=== PATIENT | female | born 1960 | race Caucasian/White ===

== ENCOUNTER 2016-08-22 12:49 | Emergency (ER) | payer OTHER ==
--- NOTE | 2016-08-22 12:58 | PDOC ---
History of Present Illness - General History Source: Patient Exam Limitations: No Limitations - History of Present Illness Initial Comments: 08/22/16 13:52 The patient is a 56 year old female with a significant past medical history of arthritis in the left leg and back, COPD, HTN, hypercholesterolemia, who presents to the ER with generalized chest pain and left arm pain earlier today. Patient states she went outside of her apartment today for fresh air and suddenly started to feel chest pain, left sided arm pain, and shortness of breath. Patient reports not feeling well for one week. She states she missed her appointment for her chronic arthritis symptoms and was not able to refill the percocet medication. Patient was told by her doctor that her symptoms may be from percocet withdrawal and was told to go to the ER if symptoms persist. On interview, patient states the chest pain and left arm pain resolved. She reports she has a loss of appetite, has frequent bowel movements, and is lightheaded when she stands up. She says her next appointment for medication is September 10. She denies fever, chills, cough She denies abdominal pain, diarrhea, nausea, vomiting She denies headache, dizziness She denies heart palpitations, diaphoresis <Geneva Farnsworth - Last Filed: 08/22/16 14:33> <Tash Roberts - Last Filed: 08/22/16 21:27> - General Chief Complaint: Chest Pain Stated Complaint: CHEST PAIN Past History <Geneva Farnsworth - Last Filed: 08/22/16 14:33> - Past Medical History COPD: Yes HTN: Yes Hypercholesterolemia: Yes - Surgical History Abdominal Surgery: Yes (tubal ligation) Appendectomy: Yes - Psycho/Social/Smoking Cessation Hx Anxiety: No Suicidal Ideation: No Smoking History: Current every day smoker Number of Cigarettes Smoked Daily: 10 Hx Alcohol Use: No Drug/Substance Use Hx: No Substance Use Type: None <Tash Roberts - Last Filed: 08/22/16 21:27> - Past Medical History Allergies/Adverse Reactions: Allergies Allergy/AdvReac Type Severity Reaction Status Date / Time Penicillins Allergy Severe Hives Verified 08/22/16 13:43 Home Medications: Ambulatory Orders Albuterol 0.083% Nebulizer Sandra [Ventolin 0.083% Nebulizer Soln -] 1 neb NEB Q4H #1 box 07/25/15 Budesonide/Formeterol Fumarate [SYMBICORT 160/4.5mcg -] 1 inh PO BID 08/22/16 Fluticasone/Salmeterol [Advair Hfa 115-21 Mcg Inhaler] 1 inh PO BID 08/22/16 Lisinopril [Prinivil] 10 mg PO DAILY 08/22/16 Oxycodone HCl/Acetaminophen [Percocet 5-325 mg Tablet] 1 tab PO Q6H PRN #12 tablet MDD 4 tabs 08/22/16 Review of Systems - Review of Systems Able to Perform ROS?: Yes Comments:: 08/22/16 13:58 GENERAL/CONSTITUTIONAL: Lightheadedness. Loss of appetite. No fever or chills. No weakness. HEAD, EYES, EARS, NOSE AND THROAT: No change in vision. No ear pain or discharge. No sore throat. CARDIOVASCULAR: Chest pain, shortness of breath. RESPIRATORY: No cough, wheezing, or hemoptysis. GASTROINTESTINAL: Frequent bowel movement. No nausea, vomiting, diarrhea or constipation. GENITOURINARY: No dysuria, frequency, or change in urination. MUSCULOSKELETAL: Left arm pain. No joint or muscle swelling or pain. No neck or back pain. SKIN: No rash NEUROLOGIC: No headache, vertigo, loss of consciousness, or change in strength/ sensation. ENDOCRINE: No increased thirst. No abnormal weight change. HEMATOLOGIC/LYMPHATIC: No anemia, easy bleeding, or history of blood clots. ALLERGIC/IMMUNOLOGIC: No hives or skin allergy. <Uts,Geneva - Last Filed: 08/22/16 14:33> *Physical Exam - Vital Signs Last Vital Signs Temp Pulse Resp BP Pulse Ox 98.2 F 80 17 145/87 96 08/22/16 13:36 08/22/16 13:36 08/22/16 13:36 08/22/16 13:36 08/22/16 13:36 - Physical Exam Comments: 08/22/16 14:00 GENERAL: Awake, alert, and fully oriented, in no acute distress HEAD: No signs of trauma EYES: PERRLA, EOMI, sclera anicteric, conjunctiva clear ENT: Auricles normal inspection, hearing grossly normal, nares patent, oropharynx clear without exudates. Moist mucosa NECK: Normal ROM, supple, no lymphadenopathy, JVD, or masses LUNGS: Breath sounds equal, clear to auscultation bilaterally. No wheezes, and no crackles HEART: Regular rate and rhythm, normal S1 and S2, no murmurs, rubs or gallops ABDOMEN: Soft, nontender, normoactive bowel sounds. No guarding, no rebound. No masses EXTREMITIES: Normal range of motion, no edema. No clubbing or cyanosis. No cords, erythema, or tenderness NEUROLOGICAL: Cranial nerves II through XII grossly intact. Normal speech, normal gait SKIN: Warm, Dry, normal turgor, no rashes or lesions noted. <JavadGeneva - Last Filed: 08/22/16 14:33> Heart Score/ECG Review - History History: Slightly suspicious - Electrocardiogram EKG: Normal - Age Age: 45-65 - Risk Factors Risk Factors Heart Score: Yes Hx Hypertension, Yes Smoking History Based on the list above the patient has:: 1-2 risk factors - Troponin Troponin: </= normal limit - Score Heart Score - Total: 2 - ECG Impressions Comment:: EKG read 13:06- NSR 85 bpm, RBBB, no acute ST/T changes. <Tash Roberts - Last Filed: 08/22/16 21:27> ED Treatment Course - LABORATORY CBC & Chemistry Diagram: 08/22/16 13:20 08/22/16 13:43 - ADDITIONAL ORDERS Additional order review: 08/22/16 13:20 RBC 4.32 MCV 92.7 MCHC 33.8 RDW 13.7 D MPV 7.4 L Neutrophils % 75.6 Lymphocytes % 14.3 D Monocytes % 6.6 Eosinophils % 2.6 D Basophils % 0.9 - RADIOLOGY Radiograph Interpretation: 08/22/16 14:33 Chest XR impression reported by Dr. Miguel Ángel Lees: No acute pathology. No significant change. - Medications Given in the ED: ED Medications Discontinued Medications Generic Name Dose Route Start Last Admin Trade Name Freq PRN Reason Stop Dose Admin Oxycodone/Acetaminophen 1 combo 08/22/16 13:09 08/22/16 13:30 Percocet 5/325 - PO 08/22/16 13:10 1 combo ONCE ONE Administration <JavadGeneva - Last Filed: 08/22/16 14:33> - LABORATORY CBC & Chemistry Diagram: 08/22/16 13:20 08/22/16 13:43 <Tash Roberts - Last Filed: 08/22/16 21:27> Medical Decision Making - Medical Decision Making 08/22/16 13:07 Reference #: [id number]- Last rx for percocet on 06/24. No red flags. 08/22/16 14:45 Discussion at bedside. Patient had a negative stress test and complete cardiac workup in the last month. Her symptoms improved with small dose of percocet, and I suspect that part of this is related to withdrawal. We discussed that I will given smaller dose for 3 day supply (5mg of oxycodone instead of 10 mg), to attempt to give her time for outpatient pain management f/u. We also discussed that it may be valuable for her to be tapered off over time with pain mgmt physician's supervision, as the withdrawal symptoms have been distressing for patient, and she may go through it again if she misses an appointment. Stable for DC home. <Tash Roberts - Last Filed: 08/22/16 21:27> *DC/Admit/Observation/Transfer - Attestations Scribe Attestion: 08/22/16 14:01 Documentation prepared by Geneva Farnsworth, acting as medical transcriptionist for Tash Roberts MD. <Geneva Farnsworth - Last Filed: 08/22/16 14:33> - Discharge Dispostion Admit: No <Tash Roberts - Last Filed: 08/22/16 21:27> Diagnosis at time of Disposition: Chest pain Qualifiers: Chest pain type: unspecified Qualified Code(s): R07.9 - Chest pain, unspecified - Discharge Dispostion Disposition: HOME Condition at time of disposition: Improved - Prescriptions Prescriptions: Oxycodone HCl/Acetaminophen [Percocet 5-325 mg Tablet] 1 tab PO Q6H PRN #12 tablet MDD 4 tabs PRN Reason: Severe Pain - Referrals Referrals: Coco Tello MD [Primary Care Provider] - - Patient Instructions Printed Discharge Instructions: DI for Chest Pain
[2016-08-22] MEDS ORDERED: OXYCODONE/APAP 5/325MG COMBO TABLET PO ONE (13:09)
[2016-08-22] MEDS ORDERED: OXYCODONE/APAP 5/325MG COMBO TABLET ONE (13:28)
--- NOTE | 2016-08-22 13:28 | EKG ---
Test Reason : Blood Pressure : / mmHG Vent. Rate : 085 BPM Atrial Rate : 085 BPM P-R Int : 116 ms QRS Dur : 132 ms QT Int : 400 ms P-R-T Axes : -05 082 028 degrees QTc Int : 476 ms NORMAL SINUS RHYTHM RIGHT BUNDLE BRANCH BLOCK ABNORMAL ECG WHEN COMPARED WITH ECG OF 25-JUL-2015 15:12, NO SIGNIFICANT CHANGE WAS FOUND Confirmed by KYLAH MCCULLOUGH MD ([id number]) on 08/22/2016 1:28:11 PM Referred By: Confirmed By:KYLAH MCCULLOUGH MD
[2016-08-22 13:32] LABS: BASOPHIL 0.9 % (0-2.0); EOSINOPHIL 2.6 % (0-4.5); MCH 31.3 pg (25.7-33.7); MCHC 33.8 g/dl (32.0-36.0); MEAN CELL VOLUME 92.7 fl (80-96); MEAN PLT VOLUME 7.4 fl (7.5-11.1); NEUTROPHILS 75.6 % (42.8-82.8); PLATELET COUNT 322 K/MM3 (134-434); RDW 13.7 % (11.6-15.6)
[2016-08-22 13:42] VITALS: TEMP 98.2; BMI 38.5
[2016-08-22 14:03] LABS: ALBUMIN 3.3 g/dl (3.4-5.0); ANION GAP 11 (8-16); CALCIUM 8.6 mg/dL (8.5-10.1); CO2 25 mmol/L (21-32); CREATININE 0.7 mg/dL (0.55-1.02); GLUCOSE,RANDOM 97 mg/dL (74-106); SGOT/AST 12 U/L (15-37); SGPT/ALT 26 U/L (12-78)
[2016-08-22 14:08] LABS: ALK PHOS 104 U/L (45-117); BILIRUBIN,TOTAL 0.3 mg/dL (0.2-1.0); TOT PROT 6.4 g/dl (6.4-8.2); TROPONIN I < 0.02 ng/ml (0.00-0.05)
[2016-08-22 15:35] VITALS: BP 139/79; PULSE 76
== END 2016-08-22 15:35 | disposition home or self-care (01) ==
LOC: JER 12:49
DX: R07.9 Chest pain, unspecified (principal); M12.9 Arthropathy, unspecified
CPT/HCPCS: 36415; 71010-TC; 80053; 82550; 84484; 85025; 93005; 93010; 99284-25

== ENCOUNTER 2016-08-28 20:35 | Emergency (ER) | payer OTHER ==
[2016-08-28] MEDS ORDERED: ALBUTEROL SO4 2.5/IPRATROPIUM 0.5 INH SOL 3 ML VIAL.NEB. NEB ONE ×2 (20:55→21:08)
[2016-08-28] MEDS ORDERED: OXYCODONE/APAP 5/325MG COMBO TABLET PO ONE (20:56)
[2016-08-28 21:02] VITALS: BP 148/112; PULSE 106; TEMP 98; BMI 38.5
[2016-08-28] MEDS ORDERED: OXYCODONE/APAP 5/325MG COMBO TABLET ONE (21:08)
--- NOTE | 2016-08-28 23:10 | PDOC ---
History of Present Illness - General History Source: Patient Exam Limitations: No Limitations - History of Present Illness Initial Comments: 08/28/16 23:19 The patient is 56 year old female with a PMHx of COPD and chronic back pain who presents to the ED with back pain. She reports that she missed a doctors appt who prescribes her pain medication for her chronic back pain and the next appt is not for a while. She reports the back pain is constant and severe. Nothing alleviates the pain. She also reports congestion and cough. She reports taking nebulizer treatments, which have been helping slightly. She denies chest pain, SOB, fever, chills, nausea, vomiting, diarrhea. She denies urinary complaints. <Anahi English - Last Filed: 08/28/16 23:20> <Belia Mcelroy - Last Filed: 08/29/16 22:11> - General Chief Complaint: Asthma Stated Complaint: ASTHMA/BODY PAIN Time Seen by Provider: 08/28/16 20:54 Past History <Anahi English - Last Filed: 08/28/16 23:20> - Past Medical History COPD: Yes HTN: Yes Hypercholesterolemia: Yes Other medical history: arthritis - Surgical History Abdominal Surgery: Yes (tubal ligation) Appendectomy: Yes - Immunization History Immunization Up to Date: Yes - Psycho/Social/Smoking Cessation Hx Anxiety: No Suicidal Ideation: No Smoking History: Former smoker Have you smoked in the past 12 months: Yes Number of Cigarettes Smoked Daily: 10 If you are a former smoker, when did you quit?: 04/30/16 Information on smoking cessation initiated: No Hx Alcohol Use: No Drug/Substance Use Hx: No Substance Use Type: None <Belia Mcelroy - Last Filed: 08/29/16 22:11> - Past Medical History Allergies/Adverse Reactions: Allergies Allergy/AdvReac Type Severity Reaction Status Date / Time Penicillins Allergy Severe Hives Verified 08/22/16 13:43 Home Medications: Ambulatory Orders Albuterol 0.083% Nebulizer Sandra [Ventolin 0.083% Nebulizer Soln -] 1 neb NEB Q4H #1 box 07/25/15 Budesonide/Formeterol Fumarate [SYMBICORT 160/4.5mcg -] 1 inh PO BID 08/22/16 Fluticasone/Salmeterol [Advair Hfa 115-21 Mcg Inhaler] 1 inh PO BID 08/22/16 Lisinopril [Prinivil] 10 mg PO DAILY 08/22/16 Oxycodone HCl/Acetaminophen [Percocet 5-325 mg Tablet] 1 tab PO Q6H PRN #12 tablet MDD 4 tabs 08/22/16 Oxycodone HCl/Acetaminophen [Percocet 5/325 -] 1 tab PO Q6H #16 tablet MDD 4 Review of Systems - Review of Systems Able to Perform ROS?: Yes Comments:: 08/28/16 23:20 GENERAL/CONSTITUTIONAL: No fever or chills. No weakness. HEAD, EYES, EARS, NOSE AND THROAT: + congestion. No change in vision. No ear pain or discharge. No sore throat. CARDIOVASCULAR: No chest pain or shortness of breath. RESPIRATORY: + cough. No wheezing, or hemoptysis. GASTROINTESTINAL: No nausea, vomiting, diarrhea or constipation. GENITOURINARY: No dysuria, frequency, or change in urination. MUSCULOSKELETAL: + back pain. No joint or muscle swelling or pain. No neck pain. SKIN: No rash NEUROLOGIC: No headache, vertigo, loss of consciousness, or change in strength/ sensation. ENDOCRINE: No increased thirst. No abnormal weight change. HEMATOLOGIC/LYMPHATIC: No anemia, easy bleeding, or history of blood clots. ALLERGIC/IMMUNOLOGIC: No hives or skin allergy. <Anahi English - Last Filed: 08/28/16 23:20> *Physical Exam - Vital Signs Last Vital Signs Temp Pulse Resp BP Pulse Ox 98.0 F 106 H 18 148/112 98 08/28/16 20:57 08/28/16 20:57 08/28/16 20:57 08/28/16 20:57 08/28/16 20:57 - Physical Exam Comments: 08/28/16 23:20 GENERAL: Awake, alert, and fully oriented, in no acute distress HEAD: No signs of trauma EYES: PERRLA, EOMI, sclera anicteric, conjunctiva clear ENT: Auricles normal inspection, hearing grossly normal, nares patent, oropharynx clear without exudates. Moist mucosa NECK: Normal ROM, supple, no lymphadenopathy, JVD, or masses LUNGS: Breath sounds equal, clear to auscultation bilaterally. No wheezes, and no crackles HEART: Regular rate and rhythm, normal S1 and S2, no murmurs, rubs or gallops ABDOMEN: Soft, nontender, normoactive bowel sounds. No guarding, no rebound. No masses EXTREMITIES: Normal range of motion, no edema. No clubbing or cyanosis. No cords, erythema, or tenderness NEUROLOGICAL: Cranial nerves II through XII grossly intact. Normal speech, normal gait SKIN: Warm, Dry, normal turgor, no rashes or lesions noted. <English,Anahi A - Last Filed: 08/28/16 23:20> - Vital Signs Last Vital Signs Temp Pulse Resp BP Pulse Ox 98.0 F 106 H 18 148/112 98 08/28/16 20:57 08/28/16 20:57 08/28/16 20:57 08/28/16 20:57 08/28/16 20:57 <Belia Mcelroy - Last Filed: 08/29/16 22:11> ED Treatment Course - RADIOLOGY Radiograph Interpretation: 08/28/16 23:21 Chest X-Ray Reported by Dr. Larisa Franco Impression: No significant interval change or acute lung disease is present. - Medications Given in the ED: ED Medications Discontinued Medications Generic Name Dose Route Start Last Admin Trade Name Freq PRN Reason Stop Dose Admin Albuterol/Ipratropium 1 amp 08/28/16 20:55 08/28/16 21:19 Duoneb - NEB 08/28/16 20:56 1 amp ONCE ONE Administration Oxycodone/Acetaminophen 1 combo 08/28/16 20:56 08/28/16 21:19 Percocet 5/325 - PO 08/28/16 20:57 1 combo ONCE ONE Administration <English,Anahi A - Last Filed: 08/28/16 23:20> - RADIOLOGY Radiology Studies Ordered: Category Date Time Status CHEST PA & LAT [RAD] Stat Radiology 08/28/16 21:13 Completed - Medications Given in the ED: ED Medications Discontinued Medications Generic Name Dose Route Start Last Admin Trade Name Freq PRN Reason Stop Dose Admin Albuterol/Ipratropium 1 amp 08/28/16 20:55 08/28/16 21:19 Duoneb - NEB 08/28/16 20:56 1 amp ONCE ONE Administration Oxycodone/Acetaminophen 1 combo 08/28/16 20:56 08/28/16 21:19 Percocet 5/325 - PO 08/28/16 20:57 1 combo ONCE ONE Administration <NaviBelia - Last Filed: 08/29/16 22:11> Medical Decision Making - Medical Decision Making 08/29/16 22:10 Pt complains of asthma, but her lungs are clear and cxr is normal. She also wants percocet for her back pain. I gave her 12 pills. SHe tells me that she is going for a doctor's appt in 3 days. <Belia Mcelroy - Last Filed: 08/29/16 22:11> *DC/Admit/Observation/Transfer - Attestations Scribe Attestion: 08/28/16 23:20 Documentation prepared by Anahi English, acting as medical liaison for Belia Mcelroy MD. <Anahi English - Last Filed: 08/28/16 23:20> - Discharge Dispostion Admit: No <Belia Mcelroy - Last Filed: 08/29/16 22:11> Diagnosis at time of Disposition: COPD exacerbation, Chronic pain - Discharge Dispostion Disposition: HOME Condition at time of disposition: Stable - Prescriptions Prescriptions: Oxycodone HCl/Acetaminophen [Percocet 5/325 -] 1 tab PO Q6H #16 tablet MDD 4 - Referrals Referrals: Coco Tello MD [Primary Care Provider] - - Patient Instructions Printed Discharge Instructions: Asthma -- Adult, DI for Chronic Pain -- Adult
== END 2016-08-28 23:34 | disposition home or self-care (01) ==
LOC: JER 20:35 → SUPCPDRO 20:35 → JER 23:34
PROC: 3E0F7GC Introduction of Other Therapeutic Substance into Respiratory Tract, Via Natural or Artificial Opening (ICD-10-PCS; principal; 2016-08-28)
DX: J44.1 Chronic obstructive pulmonary disease with (acute) exacerbation (principal); Z87.891 Personal history of nicotine dependence; I10 Essential (primary) hypertension; E78.00 Pure hypercholesterolemia, unspecified; M12.9 Arthropathy, unspecified
CPT/HCPCS: 71020-TC; 94640; 99281-25

== ENCOUNTER 2016-09-07 00:08 | Emergency (ER) | payer OTHER ==
[2016-09-07 00:25] VITALS: BP 108/63; PULSE 90; TEMP 98; BMI 39.1
[2016-09-07] MEDS ORDERED: OXYCODONE/APAP 5/325MG COMBO TABLET PO ONE (00:50)
--- NOTE | 2016-09-07 00:52 | PDOC ---
History of Present Illness - General Chief Complaint: Injury Stated Complaint: FALL Time Seen by Provider: 09/07/16 00:28 History Source: Patient Exam Limitations: No Limitations - History of Present Illness Initial Comments: 09/07/16 01:31 Patient is as 56 year old female with h/o chronic pain, OA, COPD, HTN, HLD, appendectomy, BTL c/o right hip pain and elbow pain. Patient states she was out walking to the store and twisted her right ankle on the uneven pavement and fell hitting her right elbow and hip on the ground. States he pain is 10/10 she is able to more her extremity. States she is on pain management but missed her appointment for pain management and so is detoxing from the opiates. Denies nausea, vomiting, abdominal pain, chest pain, nasal congestion. She is requesting to have percocet and a prescription for home because her next appointment will be on 09/18/16. Patient was seen in the ED on 08/22/16 for chest pain and at that time has also missed her appointment and was scheduled for September 10 for next appointment. PMD: Dr. Tello PMHX: as above PSOCHX: denies etoh, stopped smoking 04/29/16, neg drugs Famhx: noncontributory ALL: PCN GENERAL/CONSTITUTIONAL: [No fever or chills. No weakness. No weight change,] HEAD, EYES, EARS, NOSE AND THROAT: [No change in vision. No ear pain or discharge. No sore throat.] CARDIOVASCULAR: [No chest pain or shortness of breath.] RESPIRATORY: (+) cough, wheezing, (-) hemoptysis.] GASTROINTESTINAL: [No nausea, vomiting, diarrhea or constipation. No rectal bleeding.] GENITOURINARY: [No dysuria, frequency, or change in urination.] MUSCULOSKELETAL: (+) joint or muscle swelling or pain, (+) neck & back pain.] SKIN AND BREASTS: [No rash or easy bruising.] NEUROLOGIC: [No headache, vertigo, loss of consciousness, or loss of sensation.] PSYCHIATRIC: [No depression or anxiety.] ENDOCRINE: [No increased thirst. No abnormal weight change.] HEMATOLOGIC/LYMPHATIC: [No anemia, easy bleeding, or history of blood clots.] ALLERGIC/IMMUNOLOGIC: [No hives or skin allergy. No latex allergy.] GENERAL: [The patient is awake, alert, and fully oriented, in mild distress, (+ ) AOB.] HEAD: [Normal with no signs of trauma.] EYES: [Pupils equal, round and reactive to light, extraocular movements intact, sclera anicteric, conjunctiva clear.] ENT: [Ears normal, nares patent, oropharynx clear without exudates. Moist mucous membranes.] NECK: [Normal range of motion, supple without lymphadenopathy, JVD, or masses.] LUNGS: [Breath sounds equal, clear to auscultation bilaterally. No wheezes, and no crackles.] HEART: [Regular rate and rhythm, normal S1 and S2 without murmur, rub.] ABDOMEN: [Soft, nontender, normoactive bowel sounds. No guarding, no rebound. No masses.] EXTREMITIES: [Normal range of motion of right ankle and nontender, no edema. Decreased ROM of the right hip, tenderness to palp. FORM right elbow and elbow , No clubbing or cyanosis. No cords, erythema, or tenderness calf.] NEUROLOGICAL: [Cranial nerves II through XII grossly intact. Normal speech, normal gait.] PSYCH: [Normal mood, normal affect.] SKIN: abrasion to the right elbow laterally, Warm, Dry, normal turgor, no rashes or lesions noted.] Past History - Past Medical History Allergies/Adverse Reactions: Allergies Allergy/AdvReac Type Severity Reaction Status Date / Time Penicillins Allergy Severe Hives Verified 09/07/16 02:50 Home Medications: Ambulatory Orders Albuterol 0.083% Nebulizer Sandra [Ventolin 0.083% Nebulizer Soln -] 1 neb NEB Q4H #1 box 07/25/15 Budesonide/Formeterol Fumarate [SYMBICORT 160/4.5mcg -] 1 inh PO BID 08/22/16 Fluticasone/Salmeterol [Advair Hfa 115-21 Mcg Inhaler] 1 inh PO BID 08/22/16 Lisinopril [Prinivil] 10 mg PO DAILY 08/22/16 Cyclobenzaprine HCl [Flexeril 10 mg] 10 mg PO BID PRN #60 tablet 09/07/16 Ibuprofen [Motrin -] 600 mg PO QID #120 tablet 09/07/16 COPD: Yes HTN: Yes Hypercholesterolemia: Yes - Surgical History Abdominal Surgery: Yes (tubal ligation) Appendectomy: Yes - Immunization History Immunization Up to Date: Yes - Psycho/Social/Smoking Cessation Hx Anxiety: No Suicidal Ideation: No Smoking History: Unknown if ever smoked Have you smoked in the past 12 months: No Number of Cigarettes Smoked Daily: 10 If you are a former smoker, when did you quit?: 04/2016 Hx Alcohol Use: No Drug/Substance Use Hx: No Substance Use Type: None *Physical Exam - Vital Signs Last Vital Signs Temp Pulse Resp BP Pulse Ox 98 F 90 18 108/63 97 09/07/16 00:22 09/07/16 00:22 09/07/16 00:22 09/07/16 00:22 09/07/16 00:22 ED Treatment Course - RADIOLOGY Radiology Studies Ordered: Category Date Time Status HIP & PELVIS-RIGHT [RAD] Stat Radiology 09/07/16 00:50 Ordered Medical Decision Making - Medical Decision Making 09/07/16 01:32 Patient is as 56 year old female with h/o chronic pain, OA, COPD, HTN, HLD, c/o right hip pain and elbow pain, s/p fall. Patient has chronic pain and is currently on pain management. will give pain meds in the ED but will give no Rx for home. Inst to f/u with pain management or pmd. 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 Reported severe OA Patient was up and ambulated to the bathroom with cane will discharge At discharge patient is requesting to have Rx for narcotics. I informed the patient that while she is on pain management she will have to d/w her pain meds with the pain management doctor. D/w that I will not give her Rx for narcotics she will have to call her pmd. I discussed the physical exam findings, ancillary test results and final diagnoses with the patient. I answered all of the patient's questions. The patient was satisfied with the care received and felt comfortable with the discharge plan and treatment plan. The Patient agrees to follow up with the primary care physician within 24-72 hours. *DC/Admit/Observation/Transfer Diagnosis at time of Disposition: Hip pain Qualifiers: Laterality: right Qualified Code(s): M25.551 - Pain in right hip Elbow pain Qualifiers: Laterality: right Qualified Code(s): M25.521 - Pain in right elbow - Discharge Dispostion Disposition: HOME Condition at time of disposition: Stable - Prescriptions Prescriptions: Cyclobenzaprine HCl [Flexeril 10 mg] 10 mg PO BID PRN #60 tablet PRN Reason: Back Pain Ibuprofen [Motrin -] 600 mg PO QID #120 tablet - Referrals Referrals: Coco Tello MD [Primary Care Provider] - - Patient Instructions Printed Discharge Instructions: DI for Chronic Pain -- Adult Additional Instructions: Your Discharge Instructions: You must call primary care physician within 24 hours to arrange follow-up. Return to the Emergency Department with any new, persistent or worsening symptoms, for fever, chills, SOB, dizziness or any other concerning changes that may occur. You will need to follow up with your pain management or your pmd for pain prescriptions. Make sure to keep your appointments with the pain management doctor
[2016-09-07] MEDS ORDERED: OXYCODONE/APAP 5/325MG COMBO TABLET ONE (00:58)
== END 2016-09-07 03:10 | disposition home or self-care (01) ==
LOC: JER 00:08
DX: M25.551 Pain in right hip (principal); W18.39XA Other fall on same level, initial encounter; Y93.01 Activity, walking, marching and hiking; Y92.480 Sidewalk as the place of occurrence of the external cause; I10 Essential (primary) hypertension; E78.5 Hyperlipidemia, unspecified; E78.00 Pure hypercholesterolemia, unspecified; M19.90 Unspecified osteoarthritis, unspecified site; J44.9 Chronic obstructive pulmonary disease, unspecified; Z87.891 Personal history of nicotine dependence
CPT/HCPCS: 73523-TC; 99281-25

== ENCOUNTER → 2016-11-30 | Emergency (ER) | payer OTHER ==
[~2016-11-30] MED LIST: ALBUTEROL SO4 2.5/IPRATROPIUM 0.5 INH SOL 3 ML VIAL.NEB. NEB ONE; OXYCODONE/APAP 5/325MG COMBO TABLET ONE; OXYCODONE/APAP 5/325MG COMBO TABLET PO ONE
[2016-11-30 23:03] VITALS: PULSE 72; BMI 38.7
--- NOTE | 2016-11-30 23:31 | PDOC ---
History of Present Illness - General History Source: Patient Exam Limitations: No Limitations - History of Present Illness Initial Comments: 11/30/16 23:43 Patient is as 56 year old female with h/o chronic pain, OA, COPD, HTN, HLD, appendectomy, who presents to the ED with left-sided shoulder/head pain, neck pain, and back pain s/p ceiling falling on her tonight. Pt states that she was investigating a leak in the ceiling when a piece of the ceiling came down on her. Upon examination, the patient states that the left-side of her head feels numb and tingly. The patient denies having any other symptoms. <Selam Drew - Last Filed: 11/30/16 23:43> <Tash Roberts - Last Filed: 12/01/16 03:03> - General Chief Complaint: Injury Stated Complaint: INJURY Time Seen by Provider: 11/30/16 22:58 Past History <Selam Drew - Last Filed: 11/30/16 23:43> - Past Medical History COPD: Yes HTN: Yes Hypercholesterolemia: Yes - Surgical History Abdominal Surgery: Yes (tubal ligation) Appendectomy: Yes - Immunization History Immunization Up to Date: Yes - Psycho/Social/Smoking Cessation Hx Anxiety: No Suicidal Ideation: No Smoking History: Current every day smoker Have you smoked in the past 12 months: No Number of Cigarettes Smoked Daily: 4 If you are a former smoker, when did you quit?: 04/2016 Information on smoking cessation initiated: No Hx Alcohol Use: No Drug/Substance Use Hx: No Substance Use Type: None <Tash Roberts - Last Filed: 12/01/16 03:03> - Past Medical History Allergies/Adverse Reactions: Allergies Allergy/AdvReac Type Severity Reaction Status Date / Time Penicillins Allergy Severe Hives Verified 11/30/16 22:52 Home Medications: Ambulatory Orders Albuterol 0.083% Nebulizer Sandra [Ventolin 0.083% Nebulizer Soln -] 1 neb NEB Q4H #1 box 07/25/15 Budesonide/Formeterol Fumarate [SYMBICORT 160/4.5mcg -] 1 inh PO BID 08/22/16 Fluticasone/Salmeterol [Advair Hfa 115-21 Mcg Inhaler] 1 inh PO BID 08/22/16 Lisinopril [Prinivil] 10 mg PO DAILY 08/22/16 Cyclobenzaprine HCl [Flexeril 10 mg] 10 mg PO BID PRN #60 tablet 09/07/16 Ibuprofen [Motrin -] 600 mg PO QID #120 tablet 09/07/16 Review of Systems - Review of Systems Able to Perform ROS?: Yes Comments:: 11/30/16 23:44 GENERAL/CONSTITUTIONAL: No fever or chills. No weakness. HEAD, EYES, EARS, NOSE AND THROAT: No change in vision. No ear pain or discharge. No sore throat. CARDIOVASCULAR: No chest pain or shortness of breath. RESPIRATORY: No cough, wheezing, or hemoptysis. GASTROINTESTINAL: No nausea, vomiting, diarrhea or constipation. GENITOURINARY: No dysuria, frequency, or change in urination. MUSCULOSKELETAL: No joint swelling or pain. (+)left-sided shoulder/head pain, neck pain, back pain. SKIN: No rash NEUROLOGIC: No vertigo, loss of consciousness. (+)numbness and tingling left- side of head. ENDOCRINE: No increased thirst. No abnormal weight change. HEMATOLOGIC/LYMPHATIC: No anemia, easy bleeding, or history of blood clots. ALLERGIC/IMMUNOLOGIC: No hives or skin allergy. <Selam Drew - Last Filed: 11/30/16 23:43> *Physical Exam - Vital Signs Last Vital Signs Temp Pulse Resp BP Pulse Ox 97.8 F 72 14 138/94 99 11/30/16 22:52 11/30/16 22:52 11/30/16 22:52 11/30/16 22:52 11/30/16 22:52 - Physical Exam Comments: 11/30/16 23:47 GENERAL: Awake, alert, and fully oriented, in no acute distress HEAD: +Signs of trauma. Bits of plaster in patients hair. ENT: Auricles normal inspection, hearing grossly normal, nares patent, oropharynx clear EYES: PERRLA, EOMI, sclera anicteric, conjunctiva clear without exudates. Moist mucosa. NECK: Normal ROM, supple, no lymphadenopathy, JVD, or masses LUNGS: Breath sounds equal, clear to auscultation bilaterally. No wheezes, and no crackles HEART: Regular rate and rhythm, normal S1 and S2, no murmurs, rubs or gallops ABDOMEN: Soft, nontender, normoactive bowel sounds. No guarding, no rebound. No masses MSK:+ Midline tenderness at C7-C3, no step-offs. EXTREMITIES: Normal range of motion, no edema. No clubbing or cyanosis. No cords, erythema, or tenderness NEUROLOGICAL: Cranial nerves II through XII grossly intact. Normal speech, normal gait SKIN: Warm, Dry, normal turgor, no rashes or lesions noted <Selam Drew - Last Filed: 11/30/16 23:43> - Vital Signs Last Vital Signs Temp Pulse Resp BP Pulse Ox 97.8 F 72 14 138/94 99 11/30/16 22:52 11/30/16 22:52 11/30/16 22:52 11/30/16 22:52 11/30/16 22:52 <Tash Roberts - Last Filed: 12/01/16 03:03> Medical Decision Making - Medical Decision Making CTH, CT c-spine, and CT t-spine with no acute findings on prelim read. Pt stable for DC home. <Tash Roberts - Last Filed: 12/01/16 03:03> *DC/Admit/Observation/Transfer - Attestations Scribe Attestion: 11/30/16 23:49 Documentation prepared by Selam Drew, acting as medical technologist chief for Tash Roberts MD. <Selam Drew - Last Filed: 11/30/16 23:43> - Discharge Dispostion Admit: No <Tash Roberts - Last Filed: 12/01/16 03:03> Diagnosis at time of Disposition: COPD (chronic obstructive pulmonary disease) Qualifiers: COPD type: unspecified COPD Qualified Code(s): J44.9 - Chronic obstructive pulmonary disease, unspecified Head injury Qualifiers: Encounter type: initial encounter Qualified Code(s): S09.90XA - Unspecified injury of head, initial encounter - Discharge Dispostion Disposition: HOME Condition at time of disposition: Stable - Referrals Referrals: Coco Tello MD [Primary Care Provider] - - Patient Instructions Printed Discharge Instructions: DI for Chronic Obstructive Pulmonary Disease, DI for Closed Head Injury
[2016-12-01 01:55] VITALS: BP 134/89; TEMP 97.9
== END | disposition home or self-care (01) ==
LOC: JER 22:09
PROC: 3E0F7GC Introduction of Other Therapeutic Substance into Respiratory Tract, Via Natural or Artificial Opening (ICD-10-PCS; principal; 2016-11-30)
DX: S09.8XXA Other specified injuries of head, initial encounter (principal); W20.1XXA Struck by object due to collapse of building, initial encounter; Y93.E9 Activity, other interior property and clothing maintenance; Y92.038 Other place in apartment as the place of occurrence of the external cause; J44.9 Chronic obstructive pulmonary disease, unspecified; I10 Essential (primary) hypertension; E78.5 Hyperlipidemia, unspecified; E78.00 Pure hypercholesterolemia, unspecified; M19.90 Unspecified osteoarthritis, unspecified site
CPT/HCPCS: 70450-TC; 72125-TC; 72128-TC; 94640; 99282-25

== ENCOUNTER 2017-01-05 15:22 | Inpatient (IN) | payer OTHER ==
--- NOTE | 2017-01-05 15:32 | PDOC ---
Attending Attestation - Resident Resident Name: Zane Freemanorn - ED Attending Attestation I have performed the following: I have examined & evaluated the patient, The case was reviewed & discussed with the resident, I agree w/resident's findings & plan, Exceptions are as noted - HPI HPI: 01/05/17 15:52 The patient is a 56-year-old female with a significant past history of HTN, HLD and reportedly known gall stones, who presents to the emergency department with right upper quadrant pain. The pain has been constant for 3 days. It does not radiate. She reports nausea. No vomiting. No change in urine or stool color. 01/05/17 15:54 01/05/17 15:56 - Physicial Exam PE: 01/05/17 15:52 She is well-appearing and in no acute distress She has right upper quadrant tenderness on deep palpation There is no rebound or guarding 01/05/17 15:56 EKG noted: Normal sinus rhythm at 78, normal axis, right bundle-branch block, no ST changes - Medical Decision Making 01/05/17 15:53 She is well appearing and in no acute distress I am concerned for biliary colic/possible cholecystitis
--- NOTE | 2017-01-05 15:39 | PDOC ---
History of Present Illness - General Stated Complaint: ABD PAIN Time Seen by Provider: 01/05/17 15:31 - History of Present Illness Initial Comments: 01/05/17 16:07 The patient is a 56 year old female with a significant past medical history of gall stones, HTN, COPD who presents to the emergency department with 3 day history of abdominal pain and tenderness. Endorses pain increases with eating and is not relieved by anything. Pain radiates to lower chest. Endorses fever/ chills at night. Also reports some lightening of stool occasionally in past several months. The patient denies shortness of breath, headache and dizziness. Denies nausea, vomit, diarrhea and constipation. Denies dysuria, frequency, urgency and hematuria. Allergies: Penicillin Past surgical history: Social history: 40 pack year smoking history, social EtOHG use PMD - Osama Sayage Past History - Past Medical History Allergies/Adverse Reactions: Allergies Allergy/AdvReac Type Severity Reaction Status Date / Time Penicillins Allergy Severe Hives Verified 01/05/17 15:54 Home Medications: Ambulatory Orders Albuterol 0.083% Nebulizer Sandra [Ventolin 0.083% Nebulizer Soln -] 1 neb NEB Q4H #1 box 07/25/15 Budesonide/Formeterol Fumarate [SYMBICORT 160/4.5mcg -] 1 inh PO BID 08/22/16 Fluticasone/Salmeterol [Advair Hfa 115-21 Mcg Inhaler] 1 inh PO BID 08/22/16 Lisinopril [Prinivil] 10 mg PO DAILY 08/22/16 Ibuprofen [Motrin -] 600 mg PO QID #120 tablet 09/07/16 Oxycodone HCl/Acetaminophen [Percocet 10-325 mg Tablet] 1 each PO Q6H PRN COPD: Yes HTN: Yes Hypercholesterolemia: Yes - Surgical History Abdominal Surgery: Yes (tubal ligation) Appendectomy: Yes - Immunization History Immunization Up to Date: Yes - Psycho/Social/Smoking Cessation Hx Anxiety: No Suicidal Ideation: No Smoking History: Current every day smoker Have you smoked in the past 12 months: No Number of Cigarettes Smoked Daily: 4 If you are a former smoker, when did you quit?: 04/2016 Hx Alcohol Use: No Drug/Substance Use Hx: No Substance Use Type: None Review of Systems - Review of Systems Comments:: 01/05/17 16:12 GENERAL/CONSTITUTIONAL: +Endorses fever or chills. No weakness. HEAD, EYES, EARS, NOSE AND THROAT: No change in vision. No ear pain or discharge. No sore throat. CARDIOVASCULAR: +Radiating chest pain, no shortness of breath RESPIRATORY: No cough, wheezing, or hemoptysis. GASTROINTESTINAL: Minimal nausea, no vomiting, some diarrhea and constipation. Some change in stool color GENITOURINARY: No dysuria, frequency, or change in urination. MUSCULOSKELETAL: No joint or muscle swelling or pain. No neck or back pain. SKIN: No rash NEUROLOGIC: No headache, vertigo, loss of consciousness, or change in strength/ sensation. ENDOCRINE: No increased thirst. No abnormal weight change HEMATOLOGIC/LYMPHATIC: No anemia, easy bleeding, or history of blood clots. ALLERGIC/IMMUNOLOGIC: No hives or skin allergy. *Physical Exam - Physical Exam Comments: 01/05/17 16:15 GENERAL: Awake, alert, and fully oriented, in no acute distress HEAD: No signs of trauma, normocephalic, atraumatic EYES: PERRLA, EOMI, sclera anicteric, conjunctiva clear ENT: Auricles normal inspection, hearing grossly normal, nares patent, oropharynx clear without exudates. Moist mucosa NECK: Normal ROM, supple, no lymphadenopathy, JVD, or masses LUNGS: No distress, speaks full sentences, clear to auscultation bilaterally HEART: Regular rate and rhythm, normal S1 and S2, no murmurs, rubs or gallops, peripheral pulses normal and equal bilaterally. ABDOMEN: +Tender to palpation midline and right upperSoft, nontender, normoactive bowel sounds. No guarding, no rebound. No masses EXTREMITIES: Normal inspection, Normal range of motion, no edema. No clubbing or cyanosis. NEUROLOGICAL: Cranial nerves II through XII grossly intact. Normal speech, normal gait, no focal sensorimotor deficits SKIN: Warm, Dry, normal turgor, no rashes or lesions noted. 01/05/17 16:26 ED Treatment Course - LABORATORY CBC & Chemistry Diagram: 01/05/17 16:10 01/05/17 17:39 Medical Decision Making - Medical Decision Making 01/05/17 16:27 Ms. Madison presents with symptoms consistent with her gall stone history and possible pancreatitis. US / labs drawn. Surgery consulted. 01/05/17 16:42 *DC/Admit/Observation/Transfer Diagnosis at time of Disposition: Cholecystitis - Referrals Referrals: Coco Tello MD [Primary Care Provider] - - Attestations Physician Attestion: 01/05/17 16:26 I, Dr. Osmar Freeman, attest that this document has been prepared under my direction and personally reviewed by me in its entirety. I further attest, that it accurately reflects all work, treatment, procedures and medical decision -making performed by me.
[2017-01-05] MEDS ORDERED: ONDANSETRON 4 MG/2 ML VIAL IVPB ONE (15:48)
[2017-01-05] MEDS ORDERED: SODIUM CHLORIDE 1,000 ML IV STA (15:48)
[2017-01-05 15:54] VITALS: BMI 38.2
[2017-01-05 16:22] LABS: BASOPHIL 0.5 % (0-2.0); EOSINOPHIL 1.4 % (0-4.5); MCH 31.5 pg (25.7-33.7); MCHC 33.9 g/dl (32.0-36.0); MEAN CELL VOLUME 92.8 fl (80-96); MEAN PLT VOLUME 8.3 fl (7.5-11.1); NEUTROPHILS 79.6 % (42.8-82.8); PLATELET COUNT 324 K/MM3 (134-434); RDW 12.9 % (11.6-15.6); WHITE BLOOD COUNT 16.1 K/mm3 (4.0-10.0)
[2017-01-05] MEDS: HYDROmorphone HCL CARPU-JECT 1 MG/1 ML DISP.SYRIN IVPUSH PRN ×2 (16:23→19:16)
[2017-01-05 16:43] LABS: INR 1.12 (0.82-1.09); PROTHROMBIN TIME (PATIENT) 12.3 SEC (9.98-11.88)
[2017-01-05 17:56] LABS: URINE APPEARANCE CLEAR; URINE BILIRUBIN NEGATIVE (NEGATIVE); URINE COLOR YELLOW; URINE GLUCOSE (UA) NEGATIVE (NEGATIVE); URINE KETONE NEGATIVE (NEGATIVE); URINE LEUK ESTERASE NEGATIVE (NEGATIVE); URINE NITRITE NEGATIVE (NEGATIVE); URINE PROTEIN NEGATIVE (NEGATIVE); URINE UROBILINOGEN NEGATIVE E.U./dl (0.2-1.0)
[2017-01-05 17:57] LABS: URINE BLOOD 1+ (NEGATIVE)
[2017-01-05 17:58] LABS: URINE MUCUS RARE; URINE RBC <1 /hpf (0-3); URINE WBC <1 /hpf (3-5)
[2017-01-05] MEDS ORDERED: SODIUM CHLORIDE 1,000 ML IV ONE (18:12)
[2017-01-05 18:19] LABS: ALBUMIN 3.3 g/dl (3.4-5.0); ANION GAP 8 (8-16); BILIRUBIN,TOTAL 0.5 mg/dL (0.2-1.0); CALCIUM 8.4 mg/dL (8.5-10.1); CO2 28 mmol/L (21-32); CREATININE 0.7 mg/dL (0.55-1.02); GLUCOSE,RANDOM 94 mg/dL (74-106); SGOT/AST 15 U/L (15-37); SGPT/ALT 23 U/L (12-78); TOT PROT 6.2 g/dl (6.4-8.2)
[2017-01-05 18:20] LABS: TROPONIN I < 0.02 ng/ml (0.00-0.05)
[2017-01-05 18:20] LABS: ALK PHOS 107 U/L (45-117)
--- NOTE | 2017-01-05 18:40 | PDOC ---
*Physical Exam - Vital Signs Last Vital Signs Temp Pulse Resp BP Pulse Ox 99.3 F 78 16 151/86 96 01/05/17 18:11 01/05/17 18:11 01/05/17 18:11 01/05/17 18:11 01/05/17 18:11 ED Treatment Course - LABORATORY CBC & Chemistry Diagram: 01/05/17 16:10 01/05/17 17:39 - ADDITIONAL ORDERS Additional order review: Laboratory Results 01/05/17 01/05/17 01/05/17 17:39 17:39 17:37 INR PTT (Actin FS) Sodium 144 Potassium 3.7 Chloride 108 H Carbon Dioxide 28 Anion Gap 8 BUN 7 D Creatinine 0.7 Creat Clearance w eGFR > 60 Random Glucose 94 Calcium 8.4 L Total Bilirubin 0.5 D AST 15 D ALT 23 Alkaline Phosphatase 107 Creatine Kinase Troponin I Total Protein 6.2 L Albumin 3.3 L Lipase 102 Urine Color Yellow Urine Appearance Clear Urine pH 6.0 Urine Protein Negative Urine Glucose (UA) Negative Urine Ketones Negative Urine Blood 1+ H Urine Nitrite Negative Urine Bilirubin Negative Urine Urobilinogen Negative Ur Leukocyte Esterase Negative Urine RBC <1 Urine WBC <1 Ur Epithelial Cells Rare Urine Mucus Rare Blood Type Antibody Screen Spec Expiration Date 01/05/17 01/05/17 01/05/17 17:25 16:40 16:10 INR PTT (Actin FS) Sodium Potassium Chloride Carbon Dioxide Anion Gap BUN Creatinine Creat Clearance w eGFR Random Glucose Calcium Total Bilirubin AST ALT Alkaline Phosphatase Creatine Kinase 77 Cancelled Troponin I < 0.02 Cancelled Total Protein Albumin Lipase Urine Color Urine Appearance Urine pH Urine Protein Urine Glucose (UA) Urine Ketones Urine Blood Urine Nitrite Urine Bilirubin Urine Urobilinogen Ur Leukocyte Esterase Urine RBC Urine WBC Ur Epithelial Cells Urine Mucus Blood Type Cancelled Antibody Screen Cancelled Spec Expiration Date Cancelled 01/05/17 01/05/17 01/05/17 16:10 16:10 16:10 INR 1.12 PTT (Actin FS) 33.3 Sodium Cancelled Potassium Cancelled Chloride Cancelled Carbon Dioxide Cancelled Anion Gap Cancelled BUN Cancelled Creatinine Cancelled Creat Clearance w eGFR Cancelled Random Glucose Cancelled Calcium Cancelled Total Bilirubin Cancelled AST Cancelled ALT Cancelled Alkaline Phosphatase Cancelled Creatine Kinase Troponin I Total Protein Cancelled Albumin Cancelled Lipase Cancelled Urine Color Urine Appearance Urine pH Urine Protein Urine Glucose (UA) Urine Ketones Urine Blood Urine Nitrite Urine Bilirubin Urine Urobilinogen Ur Leukocyte Esterase Urine RBC Urine WBC Ur Epithelial Cells Urine Mucus Blood Type Antibody Screen Spec Expiration Date 01/05/17 16:10 RBC 4.41 MCV 92.8 MCHC 33.9 RDW 12.9 MPV 8.3 D Neutrophils % 79.6 Lymphocytes % 12.0 Monocytes % 6.5 Eosinophils % 1.4 Basophils % 0.5 - Medications Given in the ED: ED Medications Discontinued Medications Generic Name Dose Route Start Last Admin Trade Name Freq PRN Reason Stop Dose Admin Sodium Chloride 1,000 mls @ 1,000 mls/hr 01/05/17 15:48 01/05/17 16:23 Normal Saline - IV 01/05/17 16:47 1,000 mls/hr ASDIR STA Administration Ondansetron HCl 8 mg 01/05/17 15:48 01/05/17 16:24 Zofran Injection IVPB 01/05/17 15:49 8 mg ONCE ONE Administration *DC/Admit/Observation/Transfer Diagnosis at time of Disposition: Cholecystitis - Discharge Dispostion Admit: Yes - Referrals Referrals: Coco Tello MD [Primary Care Provider] - - Patient Instructions - Post Discharge Activity
[2017-01-05] MEDS ORDERED: MEROPENEM 1,000 MG in DEXTROSE 5%-WATER - 100 ML IVPB STA (18:42)
--- NOTE | 2017-01-05 19:19 | PN ---
Teaching Attending Note Name of Resident: Sally Plata ATTENDING PHYSICIAN STATEMENT I saw and evaluated the patient. I reviewed the resident's note and discussed the case with the resident. I agree with the resident's findings and plan as documented. SUBJECTIVE: 56 F with pmhx of HTN, HLD, COPD, current smoker, post appendectomy, overian cystectomy, tubal ligation who presents with abdominal pain. Also with associated nausea and vomiting. Pain has been sameer on since Wednesday after eating and has been intermittent in nature. States she has had fevers and chills at home. No chest pain or pressure, no shortness of breath. OBJECTIVE: Physical: VS: Vital Signs Period Temp Pulse Resp BP Sys/Acosta Pulse Ox Last 24 Hr 98.5 F-99.3 F 76-78 16-18 147-163/80-100 96-100 GEN: NAD, Resting in bed HEENT:NCAT, PERRL CARD: RRR S1, S2 RESP:CTAB ABD: Right upper quadrant tenderness, BS X4 EXT: - C/C/E CBCD WBC 16.1 K/mm3 (4.0-10.0) H D 01/05/17 16:10 RBC 4.41 M/mm3 (3.60-5.2) 01/05/17 16:10 Hgb 13.9 GM/dL (10.7-15.3) 01/05/17 16:10 Hct 40.9 % (32.4-45.2) 01/05/17 16:10 MCV 92.8 fl (80-96) 01/05/17 16:10 MCHC 33.9 g/dl (32.0-36.0) 01/05/17 16:10 RDW 12.9 % (11.6-15.6) 01/05/17 16:10 Plt Count 324 K/MM3 (134-434) 01/05/17 16:10 MPV 8.3 fl (7.5-11.1) D 01/05/17 16:10 CMP Sodium 144 mmol/L (136-145) 01/05/17 17:39 Potassium 3.7 mmol/L (3.5-5.1) 01/05/17 17:39 Chloride 108 mmol/L (98-107) H 01/05/17 17:39 Carbon Dioxide 28 mmol/L (21-32) 01/05/17 17:39 Anion Gap 8 (8-16) 01/05/17 17:39 BUN 7 mg/dL (7-18) D 01/05/17 17:39 Creatinine 0.7 mg/dL (0.55-1.02) 01/05/17 17:39 Creat Clearance w eGFR > 60 (>60) 01/05/17 17:39 Random Glucose 94 mg/dL (74-106) 01/05/17 17:39 Calcium 8.4 mg/dL (8.5-10.1) L 01/05/17 17:39 Total Bilirubin 0.5 mg/dL (0.2-1.0) D 01/05/17 17:39 AST 15 U/L (15-37) D 01/05/17 17:39 ALT 23 U/L (12-78) 01/05/17 17:39 Alkaline Phosphatase 107 U/L (45-117) 01/05/17 17:39 Total Protein 6.2 g/dl (6.4-8.2) L 01/05/17 17:39 Albumin 3.3 g/dl (3.4-5.0) L 01/05/17 17:39 CARDIAC ENZYMES Creatine Kinase 77 IU/L (26-192) 01/05/17 17:25 Troponin I < 0.02 ng/ml (0.00-0.05) 01/05/17 17:25 Gallbladder US- Distended gallbladder thick wall 3.8mm, scant pericholecystic fluid, stones and sludge layering at the neck, cbd not dilated ASSESSMENT AND PLAN: 56 F with pmhx of COPD, HTN, HLD who presents with abdominal pain found to have Sepsis secondary to acute choleycystitis 1.) Sepsis due to Acute Choleycystitis - NPO - IVF - Pain Control - C/w Meropenum - ID consulted - Type and Screen - CBC/Coags in am - Sx. Consult appreciated 2.) COPD - C/w home meds - Nebs Prn - Pulm. consult 3.) HTN - C/w Home meds 4.) HLD - C/w home meds 5.) Dvt Ppx - Low Risk- SCDs Rest agree with resident note Place in Med-Sx
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
--- NOTE | 2017-01-05 19:52 | HP ---
CHIEF COMPLAINT: Patient is a 56 year old female with a PMHx of gallstones, HTN, COPD who presented for a three day history of mid epigastric and RUQ abdominal pain radiating to the lower chest with increasing pain when eating. Pain is constant for the last three days and associated with fever, chills and loose stools. Otherwise, patient denies shortness of breath, vomiting, constipation, dysuria, frequency, urgency, hematuria. PHYSICAL EXAMINATION Vital Signs - 24 hr 01/05/17 19:37 Pulse Rate [ 78 Apical] Respiratory 16 Rate Blood Pressure 147/80 [Left Arm] O2 Sat by Pulse 98 Oximetry (%) GENERAL: Awake, alert, and fully oriented, in no acute distress. LUNGS: bilateral wheezing throughout. No crackles. No accessory muscle use. HEART: Regular rate and rhythm, normal S1 and S2 without murmur, rub or gallop. ABDOMEN: Soft, Obese, tenderness upon palpation of right upper quadrant and midepigastric region. LOWER EXTREMITIES: No peripheral edema. WBC 16.1 K/mm3 (4.0-10.0) H D 01/05/17 16:10 RBC 4.41 M/mm3 (3.60-5.2) 01/05/17 16:10 Hgb 13.9 GM/dL (10.7-15.3) 01/05/17 16:10 Hct 40.9 % (32.4-45.2) 01/05/17 16:10 MCV 92.8 fl (80-96) 01/05/17 16:10 MCHC 33.9 g/dl (32.0-36.0) 01/05/17 16:10 RDW 12.9 % (11.6-15.6) 01/05/17 16:10 Plt Count 324 K/MM3 (134-434) 01/05/17 16:10 MPV 8.3 fl (7.5-11.1) D 01/05/17 16:10 Neutrophils % 79.6 % (42.8-82.8) 01/05/17 16:10 Lymphocytes % 12.0 % (8-40) 01/05/17 16:10 Monocytes % 6.5 % (3.8-10.2) 01/05/17 16:10 Eosinophils % 1.4 % (0-4.5) 01/05/17 16:10 Basophils % 0.5 % (0-2.0) 01/05/17 16:10 Sodium 144 mmol/L (136-145) 01/05/17 17:39 Potassium 3.7 mmol/L (3.5-5.1) 01/05/17 17:39 Chloride 108 mmol/L (98-107) H 01/05/17 17:39 Carbon Dioxide 28 mmol/L (21-32) 01/05/17 17:39 Anion Gap 8 (8-16) 01/05/17 17:39 BUN 7 mg/dL (7-18) D 01/05/17 17:39 Creatinine 0.7 mg/dL (0.55-1.02) 01/05/17 17:39 Creat Clearance w eGFR > 60 (>60) 01/05/17 17:39 Random Glucose 94 mg/dL (74-106) 01/05/17 17:39 Calcium 8.4 mg/dL (8.5-10.1) L 01/05/17 17:39 Total Bilirubin 0.5 mg/dL (0.2-1.0) D 01/05/17 17:39 AST 15 U/L (15-37) D 01/05/17 17:39 ALT 23 U/L (12-78) 01/05/17 17:39 Alkaline Phosphatase 107 U/L (45-117) 01/05/17 17:39 Creatine Kinase 77 IU/L (26-192) 01/05/17 17:25 Troponin I < 0.02 ng/ml (0.00-0.05) 01/05/17 17:25 Total Protein 6.2 g/dl (6.4-8.2) L 01/05/17 17:39 Albumin 3.3 g/dl (3.4-5.0) L 01/05/17 17:39 Lipase 102 U/L (73-393) 01/05/17 17:37 Urine Test Results Urine Color Yellow 01/05/17 17:39 Urine Appearance Clear 01/05/17 17:39 Urine pH 6.0 (5.0-8.0) 01/05/17 17:39 Urine Protein Negative (NEGATIVE) 01/05/17 17:39 Urine Glucose (UA) Negative (NEGATIVE) 01/05/17 17:39 Urine Ketones Negative (NEGATIVE) 01/05/17 17:39 Urine Blood 1+ (NEGATIVE) H 01/05/17 17:39 Urine Nitrite Negative (NEGATIVE) 01/05/17 17:39 Urine Bilirubin Negative (NEGATIVE) 01/05/17 17:39 Ur Leukocyte Esterase Negative (NEGATIVE) 01/05/17 17:39 Urine RBC <1 /hpf (0-3) 01/05/17 17:39 Urine WBC <1 /hpf (3-5) 01/05/17 17:39 Ur Epithelial Cells Rare /hpf (FEW) 01/05/17 17:39 Urine Mucus Rare 01/05/17 17:39 Gallbladder U/S (01/05/17): Gallbladder sludge and cholelithiasis with mild gallbladder wall thickening. Hepatomegaly with fatty infiltration. Chest X-ray (01/05/17): No acute pathology. No Pneumothorax, consolidation, infiltrates, pleural effusions. ASSESSMENT/PLAN: Patient is a 56 year old female with a PMHx of gallstones, HTN, COPD who presented with RUQ abdominal pain. U/S confirmed Cholecystitis and patient admitted for further monitoring and management Acute Cholecystits -U/S revealed gallbladder sludge and cholelithiasis with wall thickening -Surgery consult placed and will perform procedure tomorrow -Meropenem for IV abx, as per ID -IV Fluids- LR w/ KCl -Pain control with Morphine -Tylenol PRN for fever -Pulmonology consult for surgery risk stratification. History of COPD -NPO COPD/Asthma -DuoNeb PRN -Oxygen PRN -Incentive Spirometer -Pulmonology consult for risk stratification HTN -Continue current home meds Depression/Anxiety -Continue with current home medications F/E/N -IV LR -Electrolytes wnl -NPO for surger Prophylaxis -SCD's for DVT Case discussed with medical team and attending full H&P to follow Visit type - Emergency Visit Emergency Visit: Yes ED Registration Date: 01/05/17 Care time: The patient presented to the Emergency Department on the above date and was hospitalized for further evaluation of their emergent condition. - New Patient This patient is new to me today: Yes Date on this admission: 01/06/17 - Critical Care Critical Care patient: No
[2017-01-05] MEDS ORDERED: ACETAMINOPHEN 325 MG TABLET (FP) PO ONE (21:07)
[2017-01-05] MEDS ORDERED: ALBUTEROL SO4 2.5/IPRATROPIUM 0.5 INH SOL 3 ML VIAL.NEB. NEB ONE (21:13)
[2017-01-05] MEDS ORDERED: ALBUTEROL SO4 2.5/IPRATROPIUM 0.5 INH SOL 3 ML VIAL.NEB. NEB PRN (21:13)
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
[2017-01-05] MEDS ORDERED: PATIENT'S OWN MEDICATION (NON-FORMULARY) (Fluticasone/Salmeterol [Advair Hfa 115-21 Mcg In PO SCH (22:00)
[2017-01-05] MEDS ORDERED: traZODone HCL 150 MG TABLET PO SCH (22:00)
[2017-01-05] MEDS ORDERED: TOPIRAMATE 25 MG TABLET (FP) PO SCH (22:00)
[2017-01-05] MEDS: LACTATED RINGERS SOLUTION 1,000 ML IV SCH (22:08)
[2017-01-05] MEDS: BUDESONIDE/FORMETEROL FUMARATE 160/4.5 mcg INHALER IH SCH (22:12)
[2017-01-06] MEDS: morphine CARPU-JECT 2 MG/1 ML DISP.SYRIN IVPUSH PRN ×2 (01:34→10:47)
[2017-01-06] MEDS: MEROPENEM 1 GM in DEXTROSE 5%-WATER - 100 ML IVPB SCH ×3 (02:15→22:34)
[2017-01-06] MEDS ORDERED: traZODone HCL 50 MG TABLET (FP) PO SCH (05:18)
[2017-01-06 07:44] LABS: MCH 32.2 pg (25.7-33.7); MEAN CELL VOLUME 94.7 fl (80-96); MEAN PLT VOLUME 8.1 fl (7.5-11.1); PLATELET COUNT 269 K/MM3 (134-434); RDW 12.8 % (11.6-15.6); WHITE BLOOD COUNT 12.3 K/mm3 (4.0-10.0)
[2017-01-06 08:06] LABS: INR 1.16 (0.82-1.09); PROTHROMBIN TIME (PATIENT) 12.8 SEC (9.98-11.88)
[2017-01-06 08:08] LABS: ANION GAP 8 (8-16); CALCIUM 8.8 mg/dL (8.5-10.1); CO2 29 mmol/L (21-32); CREATININE 0.7 mg/dL (0.55-1.02); GLUCOSE,RANDOM 95 mg/dL (74-106); SGOT/AST 13 U/L (15-37); SGPT/ALT 18 U/L (12-78)
[2017-01-06 08:09] LABS: ACTIVATED PTT 31.3 SECONDS (26.9-34.4); ALK PHOS 91 U/L (45-117); BILIRUBIN,TOTAL 0.5 mg/dL (0.2-1.0); TOT PROT 5.4 g/dl (6.4-8.2)
[2017-01-06] MEDS ORDERED: PT OWN MED DRAWER 7, Y5N ONE (09:22)
[2017-01-06] MEDS: LACTATED RINGERS SOLUTION 1,000 ML IV SCH ×2 (09:35→18:33)
[2017-01-06] MEDS: BUDESONIDE/FORMETEROL FUMARATE 160/4.5 mcg INHALER IH SCH ×2 (09:36→22:02)
[2017-01-06] MEDS ORDERED: TOPIRAMATE 25 MG TABLET (FP) PO SCH (10:00)
[2017-01-06] MEDS ORDERED: LISINOPRIL 10 MG TABLET (FP) PO SCH (10:00)
--- NOTE | 2017-01-06 10:06 | PN ---
Progress Note, Physician Chief Complaint: epigastric/RUQ pain History of Present Illness: Pt seen and examined in bed. She had Tmax 101 last evening, 99.3 this am. Pain is much less after pain meds. Still present in epigastric/RUQ area. No nausea or vomiting. Voiding. No BM yet. WBC down to 12. Tolerating Meropenem without adverse reaction. No SOB. NPO for surgery today. - Current Medication List Current Medications: Active Medications Albuterol/Ipratropium (Duoneb -) 1 amp NEB Q4H PRN PRN Reason: SHORTNESS OF BREATH Last Admin: 01/06/17 06:43 Dose: 1 amp Budesonide/Formoterol Fumarate (Symbicort 160/4.5mcg -) 1 puff IH BID VIANEY Last Admin: 01/06/17 09:36 Dose: 1 puff Hydromorphone HCl (Dilaudid Injection -) 1 mg IVPUSH Q30M PRN PRN Reason: PAIN Last Admin: 01/05/17 19:16 Dose: 1 mg Lactated Ringer's (Lactated Ringers Solution) 1,000 mls @ 125 mls/hr IV ASDIR VIANEY Last Admin: 01/06/17 09:35 Dose: 125 mls/hr Meropenem 1 gm/ Dextrose 100 mls @ 100 mls/hr IVPB Q8H-IV VIANEY PRN Reason: Protocol Last Admin: 01/06/17 09:35 Dose: 100 mls/hr Lisinopril (Prinivil) 10 mg PO DAILY [facility] Last Admin: 01/06/17 09:36 Dose: 10 mg Morphine Sulfate (Morphine Injection -) 2 mg IVPUSH Q4H PRN PRN Reason: PAIN Last Admin: 01/06/17 01:34 Dose: 2 mg Non-Formulary Medication (Fluticasone/Salmeterol [Advair Hfa 115-21 Mcg Inhaler] ) 1 inh PO BID VIANEY Topiramate (Topamax -) 50 mg PO HS [facility] Last Admin: 01/05/17 22:11 Dose: 50 mg Topiramate (Topamax -) 25 mg PO DAILY [facility] Last Admin: 01/06/17 09:36 Dose: 25 mg Trazodone HCl (Desyrel -) 150 mg PO [facility] - Objective Vital Signs: Vital Signs Temperature 98.2 F 01/06/17 05:58 Pulse Rate 71 01/06/17 05:58 Respiratory Rate 20 01/06/17 05:58 Blood Pressure 124/69 01/06/17 05:58 O2 Sat by Pulse Oximetry (%) 95 01/05/17 21:00 Vital Signs (72 hours) 01/05/17 01/05/17 01/05/17 15:25 18:11 19:37 Temperature 98.5 F 99.3 F Pulse Rate 76 Pulse Rate [ 78 78 Apical] Respiratory 18 16 16 Rate Blood Pressure 163/100 Blood Pressure 151/86 147/80 [Left Arm] O2 Sat by Pulse 100 96 98 Oximetry (%) 01/05/17 01/05/17 01/05/17 20:12 21:00 22:30 Temperature 101 F H 100 F H Pulse Rate 77 Pulse Rate [ Apical] Respiratory 18 20 Rate Blood Pressure 148/90 Blood Pressure [Left Arm] O2 Sat by Pulse 95 Oximetry (%) 01/06/17 01/06/17 02:00 05:58 Temperature 98.5 F 98.2 F Pulse Rate 71 Pulse Rate [ Apical] Respiratory 20 Rate Blood Pressure 124/69 Blood Pressure [Left Arm] O2 Sat by Pulse Oximetry (%) Constitutional: Yes: No Distress, Calm, Obese Eyes: Yes: Conjunctiva Clear. No: Sclera Icterus Cardiovascular: Yes: Regular Rate and Rhythm. No: Murmur Respiratory: Yes: Regular, CTA Bilaterally Gastrointestinal: Yes: Normal Bowel Sounds, Soft, Abdomen, Obese, Tenderness ( RUQ more than epigastric). No: Tenderness, Rebound Neurological: Yes: Alert, Oriented Labs: CBC, BMP 01/06/17 06:33 01/06/17 06:33 INR, PTT INR 1.16 (0.82-1.09) H 01/06/17 06:33 CMP Sodium 145 mmol/L (136-145) 01/06/17 06:33 Potassium 3.8 mmol/L (3.5-5.1) 01/06/17 06:33 Chloride 108 mmol/L (98-107) H 01/06/17 06:33 Carbon Dioxide 29 mmol/L (21-32) 01/06/17 06:33 Anion Gap 8 (8-16) 01/06/17 06:33 BUN 5 mg/dL (7-18) L D 01/06/17 06:33 Creatinine 0.7 mg/dL (0.55-1.02) 01/06/17 06:33 Creat Clearance w eGFR > 60 (>60) 01/06/17 06:33 Random Glucose 95 mg/dL (74-106) 01/06/17 06:33 Lactic Acid 1.3 mmol/L (0.4-2.0) 01/05/17 20:55 Calcium 8.8 mg/dL (8.5-10.1) 01/06/17 06:33 Total Bilirubin 0.5 mg/dL (0.2-1.0) 01/06/17 06:33 AST 13 U/L (15-37) L 01/06/17 06:33 ALT 18 U/L (12-78) D 01/06/17 06:33 Alkaline Phosphatase 91 U/L (45-117) 01/06/17 06:33 Creatine Kinase 77 IU/L (26-192) 01/05/17 17:25 Troponin I < 0.02 ng/ml (0.00-0.05) 01/05/17 17:25 Total Protein 5.4 g/dl (6.4-8.2) L 01/06/17 06:33 Albumin 3.0 g/dl (3.4-5.0) L 01/06/17 06:33 Lipase 102 U/L (73-393) 01/05/17 17:37 - ....Imaging Chest X-ray: Report Reviewed (neg except 4mm irregular nodularity in right mid lung laterally) Problem List - Problems (1) Calculus of gallbladder with acute cholecystitis without obstruction Assessment/Plan: ok overnight NPO except meds/IVF discussed R/B/A of laparoscopic possible open cholecystectomy with patient including but not limited to bleeding, infection, bile duct injury or leak, injury to nearby structures, risks of anesthesia, pt agreeable to operation, informed consent signed anesthesia to see patient preop pulm consult pending GI/DVT prophylaxis continue antibiotics Code(s): K80.00 - CALCULUS OF GALLBLADDER W ACUTE CHOLECYST W/O OBSTRUCTION (2) COPD (chronic obstructive pulmonary disease) Assessment/Plan: continue nebs, home meds pulmonary consultation - pt sees Dr. Suazo - for preop optimization discussed smoking cessation with patient - she is trying to quit on her own Code(s): J44.9 - CHRONIC OBSTRUCTIVE PULMONARY DISEASE, UNSPECIFIED Qualifiers : COPD type: unspecified COPD Qualified Code(s): J44.9 - Chronic obstructive pulmonary disease, unspecified (3) Obesity (BMI 30-39.9) Code(s): E66.9 - OBESITY, UNSPECIFIED (4) Hypertension Assessment/Plan: continue home med per primary team Code(s): I10 - ESSENTIAL (PRIMARY) HYPERTENSION Qualifiers: Hypertension type: essential hypertension Qualified Code(s): I10 - Essential (primary) hypertension (5) Bipolar disorder Assessment/Plan: continuing home meds Code(s): F31.9 - BIPOLAR DISORDER, UNSPECIFIED Qualifiers: Active/Remission status: remission status unspecified Qualified Code (s): F31.9 - Bipolar disorder, unspecified
--- NOTE | 2017-01-06 10:44 | EKG ---
Test Reason : Blood Pressure : / mmHG Vent. Rate : 078 BPM Atrial Rate : 078 BPM P-R Int : 126 ms QRS Dur : 140 ms QT Int : 416 ms P-R-T Axes : 045 065 037 degrees QTc Int : 474 ms NORMAL SINUS RHYTHM RIGHT BUNDLE BRANCH BLOCK ABNORMAL ECG WHEN COMPARED WITH ECG OF 22-AUG-2016 13:01, NO SIGNIFICANT CHANGE WAS FOUND Confirmed by NICK HARRELL MD ([id number]) on 01/06/2017 10:43:34 AM Referred By: Confirmed By:NICK HARRELL MD
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
[2017-01-06] MEDS ORDERED: methylPREDNISolone NA SUCC 40 MG/1 ML VIAL IVPB ONE (12:45)
[2017-01-06] MEDS ORDERED: MEROPENEM 1,000 MG in DEXTROSE 5%-WATER - 100 ML IVPB STA (13:42)
--- NOTE | 2017-01-06 13:59 | PN ---
Teaching Attending Note Name of Resident: Shruthi Fitzgerald ATTENDING PHYSICIAN STATEMENT I saw and evaluated the patient. I reviewed the resident's note and discussed the case with the resident. I agree with the resident's findings and plan as documented. SUBJECTIVE:continues to have pain however alleviated with pain medications. denies CP, SOB,fever, chills, N/V/C/D OBJECTIVE: Last Vital Signs Temp Pulse Resp BP Pulse Ox 98.2 F 71 20 124/69 95 01/06/17 05:58 01/06/17 05:58 01/06/17 05:58 01/06/17 05:58 01/05/17 21:00 General NAD CV S1 S2 RRR no murmur/rub/gallop LUngs CTA B/L no wheezing/rales/rhonchi Abdomen +RUG tenderness +mendez sign no rebound or guarding soft, obese Extremities no pedal edema ASSESSMENT AND PLAN: 56yo F with PMH HTN, Dyslipidiemia, presented to the ER with abdominal pain for 3 days and found to have acute cholecystitis 1. Acute cholecystitis- clinically stable. NPO for OR today. started on Meropenem day 2 due to PCN allergy (allergy and is rash). cont IVF and pain management 2. 2. COPD- stable. no signs of acute exacerbation. has never been hospitalized due to exacerbation. cont inhlaers. pulmonary consulted 3. HTN- controlled. cont home meds 4. dyslipidemia- cont statin 5. DVT ppx- hold for pending surgery. DAVI
[2017-01-06] MEDS ORDERED: ALBUTEROL SO4 2.5/IPRATROPIUM 0.5 INH SOL 3 ML VIAL.NEB. NEB SCH (14:00)
[2017-01-06] MEDS ORDERED: PROPOFOL 20 ML ONE ×2 (14:00)
[2017-01-06] MEDS ORDERED: ROCURONIUM BROMIDE 50 MG/5 ML VIAL ONE (14:00)
[2017-01-06] MEDS ORDERED: MEROPENEM 1 GM VIAL (RESTRICTED TO ID) IVPB ONE (14:05)
[2017-01-06] MEDS ORDERED: GLYCOPYRROLATE 0.2 MG/1 ML VIAL ONE (15:08)
[2017-01-06] MEDS ORDERED: NEOSTIGMINE METHYLSULFATE 0.5 MG/ML - 10 ML MDV ONE (15:08)
[2017-01-06] MEDS ORDERED: BUPIVACAINE HCL/PF 0.5% (5MG/ML) 10 ML VIAL ONE (15:31)
[2017-01-06] MEDS ORDERED: LIDOCAINE HCL 1%, 10 MG/ML (20ML VIAL) ONE (15:31)
[2017-01-06] MEDS ORDERED: BUPIVACAINE HCL/PF 0.5% (5MG/ML) 10 ML VIAL IJ ONE (15:41)
[2017-01-06] MEDS ORDERED: LIDOCAINE HCL 1%, 10 MG/ML (20ML VIAL) IJ ONE (15:41)
[2017-01-06] MEDS ORDERED: ONDANSETRON 4 MG/2 ML VIAL IVPUSH PRN ×2 (16:06→16:48)
[2017-01-06] MEDS ORDERED: PROMETHAZINE HCL 25 MG/1 ML VIAL IVPUSH PRN (16:06)
[2017-01-06] MEDS ORDERED: LACTATED RINGERS SOLUTION 1,000 ML IV SCH (16:15)
--- NOTE | 2017-01-06 16:26 | OP ---
Operative Note - Note: Operative Date: 01/06/17 Pre-Operative Diagnosis: acute cholecystitis Operation: laparoscopic cholecystectomy Findings: very large, inflamed gallbladder with very large stone inside; critical view identified Post-Operative Diagnosis: Same as Pre-op Surgeon: Basil Luna Application Support Analyst: James White Anesthesiologist/EXECUTIVE CONSULTANT: Abram Lopez Anesthesia: General, Local (20ml 1% lido + 0.5% marcaine) Specimens Removed: gallbladder to pathology Estimated Blood Loss (mls): 15 Fluid Volume Replaced (mls): 1,000 (crystalloid) Operative Report Dictated: Yes
[2017-01-06] MEDS ORDERED: morphine CARPU-JECT 2 MG/1 ML DISP.SYRIN IVPUSH PRN (16:48)
[2017-01-06] MEDS ORDERED: OXYCODONE/APAP 5/325MG COMBO TABLET PO PRN (16:48)
[2017-01-06] MEDS ORDERED: IBUPROFEN 400 MG TABLET (FP) PO PRN (16:48)
--- NOTE | 2017-01-06 17:13 | PN ---
Physical Exam: SUBJECTIVE: Patient seen and examined at bedside. No acute events overnight. Patient has no new complaints. Denies any shortness of breath, chest pain, or any other symptoms. OBJECTIVE: Vital Signs Period Temp Pulse Resp BP Sys/Acosta Pulse Ox Last 24 Hr 98.2 F-101 F 71-86 16-20 117-148/67-91 95-98 GENERAL: The patient is in in no acute distress. Resting comfortably in bed. HEAD: Normal with no signs of trauma. EYES: PERRL, extraocular movements intact, sclera anicteric, conjunctiva clear. No ptosis. ENT: oropharynx clear without exudates, moist mucous membranes. NECK: supple, no cervical lymphadenopathy LUNGS: Breath sounds equal, clear to auscultation bilaterally, no wheezes, no crackles, no accessory muscle use. HEART: Regular rate and rhythm, S1, S2 without murmur, rub or gallop. ABDOMEN: +BS, mild tenderness to palpation in RUQ EXTREMITIES: 2+ posterior tibial pulses, warm, well-perfused, no edema. NEUROLOGICAL: Cranial nerves II through XII grossly intact Laboratory Results - last 24 hr 01/05/17 01/06/17 01/06/17 20:55 06:33 06:33 WBC 12.3 H RBC 3.68 Hgb 11.9 D Hct 34.9 MCV 94.7 MCHC 34.0 RDW 12.8 Plt Count 269 MPV 8.1 INR 1.16 H PTT (Actin FS) 31.3 Sodium Potassium Chloride Carbon Dioxide Anion Gap BUN Creatinine Creat Clearance w eGFR Random Glucose Lactic Acid 1.3 Calcium Total Bilirubin AST ALT Alkaline Phosphatase Total Protein Albumin 01/06/17 06:33 WBC RBC Hgb Hct MCV MCHC RDW Plt Count MPV INR PTT (Actin FS) Sodium 145 Potassium 3.8 Chloride 108 H Carbon Dioxide 29 Anion Gap 8 BUN 5 L D Creatinine 0.7 Creat Clearance w eGFR > 60 Random Glucose 95 Lactic Acid Calcium 8.8 Total Bilirubin 0.5 AST 13 L ALT 18 D Alkaline Phosphatase 91 Total Protein 5.4 L Albumin 3.0 L Active Medications Generic Name Dose Route Start Last Admin Trade Name Freq PRN Reason Stop Dose Admin Acetaminophen 650 mg 01/06/17 16:59 Tylenol - PO 01/09/17 16:58 Q4H PRN PAIN 6-10 Albuterol/Ipratropium 1 amp 01/06/17 18:00 Duoneb - NEB Q4HPO [facility] Budesonide/Formoterol Fumarate 1 puff 01/06/17 22:00 Symbicort 160/4.5mcg - IH BID [facility] Lactated Ringer's 1,000 mls @ 125 mls/hr 01/06/17 16:48 Lactated Ringers Solution IV ASDIR [facility] Meropenem 1 gm/ Dextrose 100 mls @ 100 mls/hr 01/07/17 02:00 IVPB Q8H-IV [facility] Protocol Ibuprofen 400 mg 01/06/17 16:48 Motrin - PO Q4H PRN PAIN Lisinopril 10 mg 01/07/17 10:00 Prinivil PO DAILY [facility] Morphine Sulfate 2 mg 01/06/17 16:48 Morphine Injection - IVPUSH 01/07/17 08:00 Q3H PRN SEVERE PAIN Ondansetron HCl 4 mg 01/06/17 16:48 Zofran Injection IVPUSH 01/06/17 22:07 Q6H PRN NAUSEA AND/OR VOMITING Oxycodone HCl 10 mg 01/06/17 16:59 Roxicodone - PO Q4H PRN PAIN 6-10 Topiramate 50 mg 01/06/17 22:00 Topamax - PO HS [facility] Topiramate 25 mg 01/07/17 10:00 Topamax - PO DAILY [facility] Trazodone HCl 150 mg 01/06/17 22:00 Desyrel - PO [facility] ASSESSMENT/PLAN: This is a 56 year old F with PMH of gallstones, HTN, COPD who presented for a 3 day history of mid epigastric and RUQ abdominal pain radiating to the lower chest with increased with RUQ abdominal pain. Patient admitted for sepsis secondary to cholecystitis and is undergoing further monitoring and management. 1. Sepsis secondary to acute cholecystitis -s/p laparascopic cholecystectomy -patient on Meropenem Day 2 -Discuss antibiotic spectrum with ID -patient started on clear liquid diet -Pain management 2. COPD -not a concern so far on admission -patient has Symbicort 160/4.5 mcg, Duoneb 1 neb Q4 PRN -Advair discontinued (since already on Symbicort) -Oxygen PRN -Incentive spirometry 3. HTN- controlled 124/69 -continue home meds -Lisinopril 10mg PO daily Visit type - Emergency Visit Emergency Visit: No - New Patient This patient is new to me today: Yes Date on this admission: 01/06/17 - Critical Care Critical Care patient: No - Discharge Referral Referred to [facility] Med P.C.: No
[2017-01-06] MEDS: oxyCODONE HCL 5 MG TABLET PO PRN (18:29)
[2017-01-06] MEDS: ALBUTEROL SO4 2.5/IPRATROPIUM 0.5 INH SOL 3 ML VIAL.NEB. NEB SCH ×2 (19:21→21:41)
--- NOTE | 2017-01-06 21:04 | OP ---
DATE OF OPERATION: 01/06/2017 PREOPERATIVE DIAGNOSIS: Acute cholecystitis. POSTOPERATIVE DIAGNOSIS: Acute cholecystitis. PROCEDURE PERFORMED: Laparoscopic cholecystectomy. SURGEON: Basil Luna M.D. LIBRARY CIRCULATION TECHNICIAN: James White M.D. ANESTHESIA: General endotracheal anesthesia and local (20 mL 1% lidocaine plus 0.5% Marcaine). ESTIMATED BLOOD LOSS: 15 mL. FLUIDS: 1 L crystalloid. SPECIMEN: Gallbladder to pathology. FINDINGS: Very large inflamed gallbladder with a very large stone inside, and the critical view was identified. DISPOSITION: Stable and extubated to PACU. INDICATION FOR PROCEDURE: Patient is a 56-year-old obese female with a history of COPD, hypertension, bipolar disorder, arthritis with a history of appendectomy with ovarian cystectomy and laparoscopic tubal ligation, with known cholelithiasis and a history of biliary colic, who was admitted to the emergency room yesterday with 3 days of upper abdominal pain associated with nausea and vomiting, fever and chills, and weakness. In the ER, she was found to have a white count of 16,000 and an ultrasound consistent with acute cholecystitis. Liver function tests and lipase were normal. She did develop fever over the course of her first evening. Fluids and antibiotics have been started, and risks, benefits, and alternatives to laparoscopic cholecystectomy were discussed with the patient including but not limited to bleeding, infection, bile leak, injury to bile duct and other nearby structures, risks of anesthetic medications. Patient agrees to surgery and has signed informed consent for same. She is now brought to the operating room for laparoscopic possible open cholecystectomy. OPERATIVE TECHNIQUE: Patient is brought to the operating room and laid supine on the operating table. Sequential compression devices are applied to bilateral lower extremities and 1 g of meropenem, which is a continuation of her treatment antibiotic, is given immediately preoperatively in the OR. After induction and intubation by anesthesia, the patient's abdomen is prepped with Chloraprep and draped in sterile fashion. A short supraumbilical midline incision was made with a scalpel and carried into subcutaneous tissues with electrocautery until the abdominal wall fascia is identified, scored and elevated with Shelbi clamps. The peritoneum is entered bluntly with the tip of a clamp, and a fingertip was used to ensure entry into the peritoneal cavity and absence of any underlying adhesions. A stay suture of 0 Polysorb is placed in the fascia in [id number] fashion for later closure, and the Surinder trocar inserted directly into the abdominal cavity and secured in place with the balloon. The abdomen is insufflated with carbon dioxide, and the laparoscope inserted to inspect the abdominal cavity. Patient was placed in reverse Trendelenburg position, and an additional 5-mm port is placed in the subxiphoid area under direct vision. A grasper is used at this point to gently manipulate the omentum inferiorly, revealing the gallbladder up against the edge of the liver; it appeared to be inflamed, quite enlarged, and somewhat intrahepatic. Two additional 5-mm ports were then placed in the right upper quadrant under direct vision and graspers introduced to these ports and used to grasp the fundus and the infundibulum of the gallbladder. The fundal grasper is repositioned more toward the mid portion of the gallbladder, given its size, just to facilitate positioning for dissection. A small bile leak resulted from the small hole in the fundus from the grasper itself. [place] dissector was then used to begin dissecting the edematous peritoneum away from the base of the gallbladder. Some fatty tissue was carefully dissected. The cystic duct and a small thin possibly vascular structure were revealed anteriorly; although this was not clearly the cystic artery, this possible vascular structure was clipped, 2 proximally and 1 distally, and divided with endoscissors. The cystic duct was then again carefully identified as the only ductal structure going directly into the gallbladder with a clear view from anterior to posterior. The cystic duct is then also clipped, 2 proximally and 1 distally, and divided with endoscissors. The hook cautery is used to begin dividing some of the peritoneum along the edges of the gallbladder going both medially and laterally, and then the [place] dissector is used again to continue dissection until the cystic artery is clearly identified. There was also a possible posterior branch identified and 2 clearly vascular structures were clipped with 2 proximal clips and 1 distal clip each and divided with endoscissors before continuing to dissect the gallbladder off the liver bed with a hook cautery. Toward the end of the dissection, the gallbladder actually peeled somewhat off the liver surface where it was intrahepatic, and a few oozing spots were cauterized with the cautery as we went. Once the gallbladder had been completely from the liver, the camera was switched to the subxiphoid port, and a bag was introduced to the umbilical port site; the gallbladder was placed into it and retrieved out that site, along with the Surinder port. On palpating the gallbladder through the bag, it was obvious there was a very large stone inside it. This was passed off the table for a pathology specimen. The Surinder trocar was then reinserted and re-secured. The abdomen was reinsufflated with carbon dioxide, and the camera returned to the umbilical port site to inspect the operative area. The liver bed was irrigated, and the fluid suctioned with a suction eviscerator tool, and again a few areas of small oozing were cauterized with the hook cautery. There was no active bleeding noted in the field, and the surgical area was suctioned clear of any remaining fluid that was possible to reach. The omentum was then tucked in against the liver edge. The patient was returned to neutral position. All ports were removed, the 5's under direct vision and the Surinder directly from the abdominal cavity, and the abdomen was desufflated of carbon dioxide. The stay suture at the umbilical site was tied to close the fascia there. Hemostasis was achieved at the port sites with electrocautery where needed. Local anesthetic was infiltrated into all 4 port sites for a total of 20 mL, and skin was closed in the 5-mm port sites with 4-0 monofilament absorbable suture, and in the umbilical site with the 4-0 Vicryl running subcuticular suture. Benzoin and Steri-Strips were applied to each of the incisions. Dressing of gauze and Tegaderm were placed over these. Counts were correct at the end of the procedure. Patient was then awakened, extubated by anesthesia. She is moved back to her stretcher and taken to the recovery room in stable condition, having tolerated the procedure well. Basil Luna M.D. [id number] MTDD
[2017-01-06] MEDS: TOPIRAMATE 25 MG TABLET (FP) PO SCH (21:58)
[2017-01-06] MEDS: traZODone HCL 50 MG TABLET (FP) PO SCH (21:59)
[2017-01-06] MEDS: ACETAMINOPHEN 325 MG TABLET (FP) PO PRN (22:38)
[2017-01-07] MEDS: LACTATED RINGERS SOLUTION 1,000 ML IV SCH (02:05)
[2017-01-07] MEDS: ALBUTEROL SO4 2.5/IPRATROPIUM 0.5 INH SOL 3 ML VIAL.NEB. NEB SCH ×6 (02:45→22:40)
[2017-01-07] MEDS: MEROPENEM 1 GM in DEXTROSE 5%-WATER - 100 ML IVPB SCH ×3 (03:00→17:13)
[2017-01-07] MEDS: oxyCODONE HCL 5 MG TABLET PO PRN ×2 (06:07→13:40)
[2017-01-07] MEDS: ACETAMINOPHEN 325 MG TABLET (FP) PO PRN ×2 (06:08→13:41)
[2017-01-07 06:52] LABS: BASOPHIL 0.2 % (0-2.0); EOSINOPHIL 0.1 % (0-4.5); MCHC 33.7 g/dl (32.0-36.0); MEAN PLT VOLUME 8.3 fl (7.5-11.1); NEUTROPHILS 87.1 % (42.8-82.8); PLATELET COUNT 259 K/MM3 (134-434); RDW 12.9 % (11.6-15.6); WHITE BLOOD COUNT 19.4 K/mm3 (4.0-10.0)
[2017-01-07 07:17] LABS: ALBUMIN 2.7 g/dl (3.4-5.0); ANION GAP 8 (8-16); CALCIUM 8.4 mg/dL (8.5-10.1); CO2 30 mmol/L (21-32); CREATININE 0.8 mg/dL (0.55-1.02); GLUCOSE,RANDOM 101 mg/dL (74-106); SGOT/AST 39 U/L (15-37); SGPT/ALT 34 U/L (12-78)
[2017-01-07 07:18] LABS: ALK PHOS 85 U/L (45-117); TOT PROT 5.3 g/dl (6.4-8.2)
[2017-01-07] MEDS ORDERED: PT OWN MED DRAWER 7, Y5N ONE ×3 (09:28→20:56)
[2017-01-07] MEDS: LISINOPRIL 10 MG TABLET (FP) PO SCH (09:30)
[2017-01-07] MEDS: TOPIRAMATE 25 MG TABLET (FP) PO SCH ×2 (09:30→21:02)
[2017-01-07] MEDS: BUDESONIDE/FORMETEROL FUMARATE 160/4.5 mcg INHALER IH SCH ×2 (09:32→21:03)
--- NOTE | 2017-01-07 11:34 | PN ---
Progress Note, Physician Chief Complaint: epigastric/RUQ pain History of Present Illness: Pt seen and examined in bed. She had Tmax 101 last evening, 99.7 this am. Pain is responding to oral pain meds, but she still feels sore and bloated. No nausea or vomiting. + Voiding. No flatus or BM yet. No SOB. Using IS and coughing with some productivity. She has tolerated clears last night and this morning. Not very hungry but a little. Antibiotics continue postop for treatment of cholecystitis. WBC up today 19, likely secondary to stress steroid dose and demargination. LFTs up some postop, not unexpectedly. - Current Medication List Current Medications: Active Medications Acetaminophen (Tylenol -) 650 mg PO Q4H PRN PRN Reason: PAIN 6-10 Stop: 01/09/17 16:58 Last Admin: 01/07/17 06:08 Dose: 650 mg Albuterol/Ipratropium (Duoneb -) 1 amp NEB Q4HPO [facility] Last Admin: 01/07/17 10:44 Dose: 1 amp Budesonide/Formoterol Fumarate (Symbicort 160/4.5mcg -) 1 puff IH BID [facility] Last Admin: 01/07/17 09:32 Dose: 1 puff Lactated Ringer's (Lactated Ringers Solution) 1,000 mls @ 125 mls/hr IV ASDIR [facility] Last Admin: 01/07/17 02:05 Dose: 125 mls/hr Meropenem 1 gm/ Dextrose 100 mls @ 100 mls/hr IVPB Q8H-IV VI[facility]Y PRN Reason: Protocol Last Admin: 01/07/17 09:31 Dose: 100 mls/hr Ibuprofen (Motrin -) 400 mg PO Q4H PRN PRN Reason: PAIN Last Admin: 01/07/17 09:29 Dose: 400 mg Lisinopril (Prinivil) 10 mg PO DAILY [facility] Last Admin: 01/07/17 09:30 Dose: 10 mg Oxycodone HCl (Roxicodone -) 10 mg PO Q4H PRN PRN Reason: PAIN 6-10 Last Admin: 01/07/17 06:07 Dose: 10 mg Topiramate (Topamax -) 50 mg PO HS [facility] Last Admin: 01/06/17 21:58 Dose: 50 mg Topiramate (Topamax -) 25 mg PO DAILY [facility] Last Admin: 01/07/17 09:30 Dose: 25 mg Trazodone HCl (Desyrel -) 150 mg PO HS [facility] Last Admin: 01/06/17 21:59 Dose: 150 mg - Objective Vital Signs: Vital Signs Temperature 99.7 F H 01/07/17 08:15 Pulse Rate 86 01/07/17 09:30 Respiratory Rate 16 01/07/17 09:30 Blood Pressure 120/70 01/07/17 09:30 O2 Sat by Pulse Oximetry (%) 96 01/06/17 21:00 Constitutional: Yes: No Distress, Calm, Obese Eyes: Yes: Conjunctiva Clear. No: Sclera Icterus Cardiovascular: Yes: Tachycardia (slight). No: Pulse Irregular Respiratory: Yes: Regular, CTA Bilaterally. No: On Nasal O2, Wheezes Gastrointestinal: Yes: Soft, Abdomen, Obese, Distention (with tympany), Hypoactive Bowel Sounds, Tenderness (mild diffuse, but mostly RUQ and incisionally). No: Tenderness, Rebound Edema: No Wound/Incision: Yes: Steri Strips (under dressings), Dressing Dry and Intact, Other (four dressings - subxiphoid and right lateral with small dried light bloodstaining) Neurological: Yes: Alert, Oriented. No: Unsteady Gait Labs: CBC, BMP 01/07/17 05:50 01/07/17 05:50 CMP Sodium 142 mmol/L (136-145) 01/07/17 05:50 Potassium 3.5 mmol/L (3.5-5.1) 01/07/17 05:50 Chloride 104 mmol/L (98-107) 01/07/17 05:50 Carbon Dioxide 30 mmol/L (21-32) 01/07/17 05:50 Anion Gap 8 (8-16) 01/07/17 05:50 BUN 8 mg/dL (7-18) D 01/07/17 05:50 Creatinine 0.8 mg/dL (0.55-1.02) 01/07/17 05:50 Creat Clearance w eGFR > 60 (>60) 01/07/17 05:50 Random Glucose 101 mg/dL (74-106) 01/07/17 05:50 Lactic Acid 1.3 mmol/L (0.4-2.0) 01/05/17 20:55 Calcium 8.4 mg/dL (8.5-10.1) L 01/07/17 05:50 Total Bilirubin 1.0 mg/dL (0.2-1.0) D 01/07/17 05:50 AST 39 U/L (15-37) H D 01/07/17 05:50 ALT 34 U/L (12-78) D 01/07/17 05:50 Alkaline Phosphatase 85 U/L (45-117) 01/07/17 05:50 Creatine Kinase 77 IU/L (26-192) 01/05/17 17:25 Troponin I < 0.02 ng/ml (0.00-0.05) 01/05/17 17:25 Total Protein 5.3 g/dl (6.4-8.2) L 01/07/17 05:50 Albumin 2.7 g/dl (3.4-5.0) L 01/07/17 05:50 Problem List - Problems (1) Calculus of gallbladder with acute cholecystitis without obstruction Assessment/Plan: POD1 s/p laparoscopic cholecystectomy for acute cholecystitis T101 overnight - will keep until afebrile x 24 hrs tolerating po but not on food yet - will advance for lunch no bowel function yet - pt encouraged to be OOB and ambulating pulmonary toilet - IS and coughing alternating percocet and ibuprofen for pain with effect wounds clean and dry - will remove dressings tomorrow GI/DVT prophylaxis continue antibiotics until afeb x 24 hrs/discharge postop instructions written in discharge plan Code(s): K80.00 - CALCULUS OF GALLBLADDER W ACUTE CHOLECYST W/O OBSTRUCTION (2) COPD (chronic obstructive pulmonary disease) Assessment/Plan: continue nebs, home meds pt sees Dr. Suazo pulm consult noted 4mm right mid-lung lateral irregular nodularity noted on CXR - per pt, known to inserter promotional item and following, along with another one Code(s): J44.9 - CHRONIC OBSTRUCTIVE PULMONARY DISEASE, UNSPECIFIED Qualifiers : COPD type: unspecified COPD Qualified Code(s): J44.9 - Chronic obstructive pulmonary disease, unspecified (3) Obesity (BMI 30-39.9) Code(s): E66.9 - OBESITY, UNSPECIFIED (4) Hypertension Assessment/Plan: continue home med per primary team Code(s): I10 - ESSENTIAL (PRIMARY) HYPERTENSION Qualifiers: Hypertension type: essential hypertension Qualified Code(s): I10 - Essential (primary) hypertension (5) Bipolar disorder Assessment/Plan: continuing home meds Code(s): F31.9 - BIPOLAR DISORDER, UNSPECIFIED Qualifiers: Active/Remission status: remission status unspecified Qualified Code (s): F31.9 - Bipolar disorder, unspecified
--- NOTE | 2017-01-07 12:43 | PN ---
Progress Note (short form) - Note Progress Note: Anesthesia postop note 56 y/o F s/p GA for laparoscopic cholecistectomy POD#1, vss, aaox3, no complaints No anesthesia complications.
--- NOTE | 2017-01-07 13:11 | PN ---
Physical Exam: SUBJECTIVE: Patient seen and examined at bedside. No acute events overnight. Today, patient has generalized abdominal pain and fullness. Tolerating clear liquid diet, but states that the fluid intake makes her pain worse. She has been OOB, but has not yet passed flatus. Will continue to monitor and watch. Denies any chest or extremity pain, N/V/D. OBJECTIVE: Vital Signs Period Temp Pulse Resp BP Sys/Acosta Pulse Ox Last 24 Hr 99.1 F-101 F 80-110 16-20 100-150/55-91 95-97 GENERAL: The patient is awake and fully oriented, in no acute distress, sitting up in bed HEAD: Normal with no signs of trauma. EYES: PERRL, extraocular movements intact, sclera anicteric, conjunctiva clear. NECK: Trachea midline, supple, no JVD LUNGS: Breath sounds equal, clear to auscultation bilaterally, no wheezes, no crackles HEART: Regular rate and rhythm, S1, S2 without murmur, rub or gallop. ABDOMEN: Soft, nontender, distended abdomen, with decreased bowel sounds, surgical scars healing s/p lap grant EXTREMITIES: 2+ posterior pulses, no edema NEUROLOGICAL: Cranial nerves II through XII grossly intact. Laboratory Results - last 24 hr 01/07/17 01/07/17 05:50 05:50 WBC 19.4 H D RBC 3.49 L Hgb 11.2 Hct 33.1 MCV 95.0 MCHC 33.7 RDW 12.9 Plt Count 259 MPV 8.3 Neutrophils % 87.1 H Lymphocytes % 6.5 L D Monocytes % 6.1 Eosinophils % 0.1 D Basophils % 0.2 Sodium 142 Potassium 3.5 Chloride 104 Carbon Dioxide 30 Anion Gap 8 BUN 8 D Creatinine 0.8 Creat Clearance w eGFR > 60 Random Glucose 101 Calcium 8.4 L Total Bilirubin 1.0 D AST 39 H D ALT 34 D Alkaline Phosphatase 85 Total Protein 5.3 L Albumin 2.7 L Active Medications Generic Name Dose Route Start Last Admin Trade Name Freq PRN Reason Stop Dose Admin Acetaminophen 650 mg 01/06/17 16:59 01/07/17 06:08 Tylenol - PO 01/09/17 16:58 650 mg Q4H PRN Administration PAIN 6-10 Albuterol/Ipratropium 1 amp 01/06/17 18:00 01/07/17 10:44 Duoneb - NEB 1 amp Q4HPO [facility] Administration Budesonide/Formoterol Fumarate 1 puff 01/06/17 22:00 01/07/17 09:32 Symbicort 160/4.5mcg - IH 1 puff BID [facility] Administration Lactated Ringer's 1,000 mls @ 125 mls/hr 01/06/17 16:48 01/07/17 02:05 Lactated Ringers Solution IV 125 mls/hr ASDIR [facility] Administration Meropenem 1 gm/ Dextrose 100 mls @ 100 mls/hr 01/06/17 22:30 01/07/17 09:31 IVPB 100 mls/hr Q8H-IV [facility] Administration Protocol Ibuprofen 400 mg 01/06/17 16:48 01/07/17 09:29 Motrin - PO 400 mg Q4H PRN Administration PAIN Lisinopril 10 mg 01/07/17 10:00 01/07/17 09:30 Prinivil PO 10 mg DAILY [facility] Administration Oxycodone HCl 10 mg 01/06/17 16:59 01/07/17 06:07 Roxicodone - PO 10 mg Q4H PRN Administration PAIN 6-10 Topiramate 50 mg 01/06/17 22:00 01/06/17 21:58 Topamax - PO 50 mg HS [facility] Administration Topiramate 25 mg 01/07/17 10:00 01/07/17 09:30 Topamax - PO 25 mg DAILY [facility] Administration Trazodone HCl 150 mg 01/06/17 22:00 01/06/17 21:59 Desyrel - PO 150 mg HS [facility] Administration ASSESSMENT/PLAN: This is a 56 year old F with PMH of gallstones, HTN, COPD who presented with RUQ abdominal pain. Ultrasound confirmed cholecystitis and patient admitted for further monitoring and management. 1. Sepsis secondary to acute cholecystitis -s/p Lap grant done by Dr. Luna -Meropenem day 3 -Surgery note: continue antibiotics until afebrile x 24 hrs/discharge -OOB, no BM yet, not passing flatus yet -Abdominal X-ray done d/t distension earlier: completed, waiting on report -Pain control roxicodone 10mg PO q4h PRN, tyenol 650 mg PO daily PRN 2. COPD -Symbicort 160/4.5 mcg, duoneb 1 neb Q4 PRN -Advair discontinued (since already on Symbicort) -Oxygen PRN -incentive spirometry 3. HTN controlled 134/66 -continue home meds -continue Lisinopril 10mg PO daily 4. Prophylaxis -SCD's for DVT Visit type - Emergency Visit Emergency Visit: No - New Patient This patient is new to me today: No - Critical Care Critical Care patient: No - Discharge Referral Referred to [facility] Med P.C.: No
--- NOTE | 2017-01-07 13:44 | PN ---
Teaching Attending Note Name of Resident: Shruthi Fitzgerald ATTENDING PHYSICIAN STATEMENT I saw and evaluated the patient. I reviewed the resident's note and discussed the case with the resident. I agree with the resident's findings and plan as documented. SUBJECTIVE: Patient complains of soreness in her abdomen. She denies nausea. She is not passing flatus and has not had a bowel movement. OBJECTIVE: Vital Signs Period Temp Pulse Resp BP Sys/Acosta Pulse Ox Last 24 Hr 99.1 F-101 F 80-110 16-20 100-150/55-91 95-97 HEART: S1S2, tachycardic LUNGS: Clear ABDOMEN: Obese, distended, soft, mild diffuse tenderness, hypoactive BS EXTTEMITIES: No edema ASSESSMENT AND PLAN: This is a 56-year-old woman with a history of HTN, hyperlipidiemia, COPD, bipolar disorder, oseteoarthritis who presented to the ER with abdominal pain. 1. Acute cholecystitis - s/p laparoscopc cholecystectomy 01/06 - On Merrem 2. COPD - Stable - Continue Symbicort, DuoNeb 3. HTN - Continue Lisinopril 4. Hyperlipidemia 5. Bipolar disorder - Continue Trazodone
--- NOTE | 2017-01-07 16:45 | CONSULT ---
Consult Consult Specialty:: infectious diseases Reason for Consultation:: cholycysitits - History of Present Illness History of Present Illness: 56yo obese F tobacco user with COPD, bipolar disorder, HTN, arthritis in back and right knee, s/p appendectomy and ovarian cystectomy, laparoscopic tubal ligation, known cholelithiasis with h/o biliary colic patient was admitted wiht diagnosis of choleycystitits and the plan was to operate the patient . patient evaluated in the post op room she has undergone choleycystecomty patient was started on iv abx and patient currently post stable says pain at the operated site but much better from before - History Source History Provided By: Patient Limitations to Obtaining History: No Limitations - Past Medical History [employer]: No: Alzheimer's Cardio/Vascular: Yes: HTN. No: AFIB Pulmonary: Yes: COPD Gastrointestinal: No: Ascites Hepatobiliary: Yes: Cholelithiasis (known with h/o biliary colic) Renal/: Yes: Other (h/o stricture requiring cystoscopies as child). No: Renal Failure ...: No Psych: Yes: Bipolar Musculoskeletal: Yes: Chronic low back pain, Osteoarthritis (R knee) Rheumatology: No: Fibromyalgia Endocrine: No: Diabetes Mellitus Additional Medical History: had head trauma in November, board fell on head - Past Surgical History Past Surgical History: Yes: Appendectomy (with ovarian cyst out at same time), Tubal Ligation (laparoscopic 25 yrs ago - at [facility], "I stopped breathing" coming out of anesthesia (no ICU, no extended stay)) Additional Surgical History: left index fingertip surgery, tonsils, wisdom teeth - Alcohol/Substance Use Hx Alcohol Use: Yes (rare social) History of Substance Use: reports: Prescription (uses Percocet 10/325 up to tid prn for arthritis - usually using one per day, not for last few days) - Smoking History Smoking history: Current some day smoker Have you smoked in the past 12 months: Yes Aproximately how many cigarettes per day: 1 (stopped 2m ago but resumed recently , 5 cigs in last week, last one yesterday) If you are a former smoker, when did you quit?: 04/2016 Home Medications - Allergies Allergies/Adverse Reactions: Allergies Allergy/AdvReac Type Severity Reaction Status Date / Time Penicillins Allergy Severe Hives Verified 01/05/17 15:54 - Home Medications Home Medications: Ambulatory Orders Albuterol 0.083% Nebulizer Sandra [Ventolin 0.083% Nebulizer Soln -] 1 neb NEB Q4H #1 box 07/25/15 Budesonide/Formeterol Fumarate [SYMBICORT 160/4.5mcg -] 1 inh PO BID 08/22/16 Fluticasone/Salmeterol [Advair Hfa 115-21 Mcg Inhaler] 1 inh PO BID 08/22/16 Lisinopril [Prinivil] 10 mg PO DAILY 08/22/16 Ibuprofen [Motrin -] 600 mg PO QID #120 tablet 09/07/16 Oxycodone HCl/Acetaminophen [Percocet 10-325 mg Tablet] 1 each PO Q6H PRN Topiramate [Topamax] 1 tab PO AM 01/05/17 Topiramate [Topamax] 2 tab PO HS 01/05/17 Trazodone HCl [Desyrel -] 1 tab PO HS 01/05/17 Review of Systems - Review of Systems Constitutional: reports: No Symptoms Eyes: reports: No Symptoms HENT: reports: No Symptoms Neck: reports: No Symptoms Cardiovascular: reports: No Symptoms Respiratory: reports: No Symptoms Gastrointestinal: reports: Abdominal Pain Musculoskeletal: reports: No Symptoms Integumentary: reports: No Symptoms Neurological: reports: No Symptoms Endocrine: reports: No Symptoms Hematology/Lymphatic: reports: No Symptoms Psychiatric: reports: No Symptoms Physical Exam Vital Signs: Vital Signs Temperature 98.4 F 01/07/17 15:22 Pulse Rate 90 01/07/17 15:22 Respiratory Rate 16 01/07/17 09:30 Blood Pressure 119/82 01/07/17 15:22 O2 Sat by Pulse Oximetry (%) 97 01/07/17 09:00 Constitutional: Yes: Well Nourished, Calm, Mild Distress Eyes: Yes: Conjunctiva Clear HENT: Yes: Atraumatic Neck: Yes: Supple Cardiovascular: Yes: Regular Rate and Rhythm Respiratory: Yes: Regular, CTA Bilaterally Gastrointestinal: Yes: Soft, Hypoactive Bowel Sounds, Other Musculoskeletal: Yes: WNL Extremities: Yes: WNL Wound/Incision: Yes: Dressing Dry and Intact Neurological: Yes: Alert, Oriented Psychiatric: Yes: Alert, Oriented Labs: CBC, BMP 01/07/17 05:50 01/07/17 05:50 Imaging - Results Chest X-ray: Report Reviewed, Image Reviewed Ultrasound: Report Reviewed, Image Reviewed Assessment/Plan Problem List - Problems (1) Bipolar disorder Code(s): F31.9 - BIPOLAR DISORDER, UNSPECIFIED Qualifiers: Active/Remission status: remission status unspecified Qualified Code (s): F31.9 - Bipolar disorder, unspecified (2) Cholecystitis, acute Code(s): K81.0 - ACUTE CHOLECYSTITIS (3) Hypertension Code(s): I10 - ESSENTIAL (PRIMARY) HYPERTENSION Qualifiers: Hypertension type: essential hypertension Qualified Code(s): I10 - Essential (primary) hypertension (4) Obesity (BMI 30-39.9) Code(s): E66.9 - OBESITY, UNSPECIFIED (5) COPD (chronic obstructive pulmonary disease) Code(s): J44.9 - CHRONIC OBSTRUCTIVE PULMONARY DISEASE, UNSPECIFIED Qualifiers : COPD type: unspecified COPD Qualified Code(s): J44.9 - Chronic obstructive pulmonary disease, unspecifiedd plan continue abx continue monitoring once aptient stable will deescalte rest as per surgery
--- NOTE | 2017-01-07 16:58 | PN ---
Progress Note, Physician History of Present Illness: patient doing much better still burping no gases some abd discomfort but feels much better - Current Medication List Current Medications: Active Medications Acetaminophen (Tylenol -) 650 mg PO Q4H PRN PRN Reason: PAIN 6-10 Stop: 01/09/17 16:58 Last Admin: 01/07/17 13:41 Dose: 650 mg Albuterol/Ipratropium (Duoneb -) 1 amp NEB Q4HPO [facility] Last Admin: 01/07/17 14:11 Dose: 1 amp Budesonide/Formoterol Fumarate (Symbicort 160/4.5mcg -) 1 puff IH BID [facility] Last Admin: 01/07/17 09:32 Dose: 1 puff Meropenem 1 gm/ Dextrose 100 mls @ 100 mls/hr IVPB Q8H-IV VIANEY PRN Reason: Protocol Last Admin: 01/07/17 09:31 Dose: 100 mls/hr Ibuprofen (Motrin -) 400 mg PO Q4H PRN PRN Reason: PAIN Last Admin: 01/07/17 09:29 Dose: 400 mg Lisinopril (Prinivil) 10 mg PO DAILY [facility] Last Admin: 01/07/17 09:30 Dose: 10 mg Oxycodone HCl (Roxicodone -) 10 mg PO Q4H PRN PRN Reason: PAIN 6-10 Last Admin: 01/07/17 13:40 Dose: 10 mg Topiramate (Topamax -) 50 mg PO [facility] Last Admin: 01/06/17 21:58 Dose: 50 mg Topiramate (Topamax -) 25 mg PO DAILY [facility] Last Admin: 01/07/17 09:30 Dose: 25 mg Trazodone HCl (Desyrel -) 150 mg PO [facility] Last Admin: 01/06/17 21:59 Dose: 150 mg - Objective Vital Signs: Vital Signs Temperature 98.4 F 01/07/17 15:22 Pulse Rate 90 01/07/17 15:22 Respiratory Rate 16 01/07/17 09:30 Blood Pressure 119/82 01/07/17 15:22 O2 Sat by Pulse Oximetry (%) 97 01/07/17 09:00 Constitutional: Yes: No Distress, Calm Cardiovascular: Yes: Regular Rate and Rhythm Respiratory: Yes: Regular, CTA Bilaterally Gastrointestinal: Yes: Normal Bowel Sounds, Soft Musculoskeletal: Yes: WNL Extremities: Yes: WNL Neurological: Yes: Alert, Oriented Psychiatric: Yes: Alert, Oriented Labs: CBC, BMP 01/07/17 05:50 01/07/17 05:50 INR, PTT INR 1.16 (0.82-1.09) H 01/06/17 06:33 Assessment/Plan Problem List - Problems (1) Bipolar disorder Code(s): F31.9 - BIPOLAR DISORDER, UNSPECIFIED Qualifiers: Active/Remission status: remission status unspecified Qualified Code (s): F31.9 - Bipolar disorder, unspecified (2) Cholecystitis, acute Code(s): K81.0 - ACUTE CHOLECYSTITIS (3) Hypertension Code(s): I10 - ESSENTIAL (PRIMARY) HYPERTENSION Qualifiers: Hypertension type: essential hypertension Qualified Code(s): I10 - Essential (primary) hypertension (4) Obesity (BMI 30-39.9) Code(s): E66.9 - OBESITY, UNSPECIFIED (5) COPD (chronic obstructive pulmonary disease) Code(s): J44.9 - CHRONIC OBSTRUCTIVE PULMONARY DISEASE, UNSPECIFIED Qualifiers : COPD type: unspecified COPD Qualified Code(s): J44.9 - Chronic obstructive pulmonary disease, unspecifiedd plan continue abx can stop abx tomorrow
[2017-01-07] MEDS: traZODone HCL 50 MG TABLET (FP) PO SCH (21:02)
[2017-01-08] MEDS ORDERED: PT OWN MED DRAWER 7, Y5N ONE ×4 (00:53→21:25)
[2017-01-08] MEDS: oxyCODONE HCL 5 MG TABLET PO PRN ×2 (01:15→19:38)
[2017-01-08] MEDS: ACETAMINOPHEN 325 MG TABLET (FP) PO PRN (01:15)
[2017-01-08] MEDS: MEROPENEM 1 GM in DEXTROSE 5%-WATER - 100 ML IVPB SCH ×6 (01:16→17:32)
[2017-01-08] MEDS: ALBUTEROL SO4 2.5/IPRATROPIUM 0.5 INH SOL 3 ML VIAL.NEB. NEB SCH ×6 (02:03→22:24)
[2017-01-08 08:54] LABS: BASOPHIL 0.3 % (0-2.0); EOSINOPHIL 0.7 % (0-4.5); MCH 31.6 pg (25.7-33.7); MCHC 32.9 g/dl (32.0-36.0); MEAN CELL VOLUME 96.1 fl (80-96); MEAN PLT VOLUME 8.2 fl (7.5-11.1); PLATELET COUNT 259 K/MM3 (134-434); RDW 12.9 % (11.6-15.6); WHITE BLOOD COUNT 14.4 K/mm3 (4.0-10.0)
[2017-01-08] MEDS ORDERED: OXYCODONE/APAP 5/325MG COMBO TABLET PO PRN (08:56)
[2017-01-08] MEDS ORDERED: IBUPROFEN 800 MG/8 ML IJ IVPB ONE ×2 (08:56→10:00)
--- NOTE | 2017-01-08 09:03 | PN ---
Progress Note, Physician Chief Complaint: epigastric/RUQ pain History of Present Illness: Pt seen and examined in bed. She has temp 101 now and is feeling hot and cold. Pain is responding to oral pain meds, but it still returns, and she is distended with no flatus or BM yet. No n/v. No SOB. Using IS and coughing with some productivity. Has been OOB and ambulated several times yesterday. She has tolerated diet, but with pain and bloating, has not had much. Antibiotics continue postop for treatment of cholecystitis. Labs pending. - Current Medication List Current Medications: Active Medications Albuterol/Ipratropium (Duoneb -) 1 amp NEB Q4HPO [facility] Last Admin: 01/08/17 06:40 Dose: 1 amp Budesonide/Formoterol Fumarate (Symbicort 160/4.5mcg -) 1 puff IH BID [facility] Last Admin: 01/07/17 21:03 Dose: 1 puff Meropenem 1 gm/ Dextrose 100 mls @ 100 mls/hr IVPB Q8H-IV VIANEY PRN Reason: Protocol Last Admin: 01/08/17 01:16 Dose: 100 mls/hr Ibuprofen (Motrin -) 600 mg PO Q6H PRN PRN Reason: PAIN Ibuprofen (Caldolor Injection -) 800 mg IVPB ONCE ONE Stop: 01/08/17 08:57 Lisinopril (Prinivil) 10 mg PO DAILY [facility] Last Admin: 01/07/17 09:30 Dose: 10 mg Oxycodone/Acetaminophen (Percocet 5/325 -) 1 combo PO Q6H PRN PRN Reason: PAIN LEVEL 6-10 Topiramate (Topamax -) 50 mg PO [facility] Last Admin: 01/07/17 21:02 Dose: 50 mg Topiramate (Topamax -) 25 mg PO DAILY [facility] Last Admin: 01/07/17 09:30 Dose: 25 mg Trazodone HCl (Desyrel -) 150 mg PO [facility] Last Admin: 01/07/17 21:02 Dose: 150 mg - Objective Vital Signs: Vital Signs Temperature 98.8 F 01/08/17 07:08 Pulse Rate 83 01/08/17 07:08 Respiratory Rate 20 01/08/17 07:08 Blood Pressure 103/71 01/08/17 07:08 O2 Sat by Pulse Oximetry (%) 96 01/07/17 21:00 Temp up to 101 now Constitutional: Yes: No Distress (uncomfortable), Calm, Obese Eyes: Yes: Conjunctiva Clear. No: Sclera Icterus Gastrointestinal: Yes: Soft, Abdomen, Obese, Distention (with tympany), Hypoactive Bowel Sounds, Tenderness (LLQ and RUQ, also incisional at umbilicus - no R/G) Wound/Incision: Yes: Well Approximated, Steri Strips (with small bloodstained spots but dry and clean), Dressing Removed Neurological: Yes: Alert, Oriented Labs: PENDING - ....Imaging X-ray: Report Reviewed (from yesterday), Image Reviewed Problem List - Problems (1) Calculus of gallbladder with acute cholecystitis without obstruction Assessment/Plan: POD2 s/p laparoscopic cholecystectomy for acute cholecystitis tolerating po but remains distended without bowel function yet - pt ok with suppository back off on po until flatus/less distention encouraged to be OOB and ambulating pulmonary toilet - IS and coughing pt requested reducing percocet and will increase ibuprofen, will use caldolor x1 dose now wounds clean and dry - dressings removed GI/DVT prophylaxis T101 - will keep until afebrile x 24 hrs continue antibiotics until afeb x 24 hrs/discharge postop instructions written in discharge plan Code(s): K80.00 - CALCULUS OF GALLBLADDER W ACUTE CHOLECYST W/O OBSTRUCTION (2) COPD (chronic obstructive pulmonary disease) Assessment/Plan: continue nebs, home meds pt sees Dr. Suazo 4mm right mid-lung lateral irregular nodularity noted on CXR - per pt, known to top icer and following, along with another one Code(s): J44.9 - CHRONIC OBSTRUCTIVE PULMONARY DISEASE, UNSPECIFIED Qualifiers : COPD type: unspecified COPD Qualified Code(s): J44.9 - Chronic obstructive pulmonary disease, unspecified (3) Obesity (BMI 30-39.9) Code(s): E66.9 - OBESITY, UNSPECIFIED (4) Hypertension Assessment/Plan: continue home med per primary team Code(s): I10 - ESSENTIAL (PRIMARY) HYPERTENSION Qualifiers: Hypertension type: essential hypertension Qualified Code(s): I10 - Essential (primary) hypertension (5) Bipolar disorder Assessment/Plan: continuing home meds Code(s): F31.9 - BIPOLAR DISORDER, UNSPECIFIED Qualifiers: Active/Remission status: remission status unspecified Qualified Code (s): F31.9 - Bipolar disorder, unspecified
[2017-01-08] MEDS ORDERED: ACETAMINOPHEN 325 MG TABLET (FP) PO PRN (09:14)
[2017-01-08 09:16] LABS: ALBUMIN 2.7 g/dl (3.4-5.0); ANION GAP 8 (8-16); BILIRUBIN,DIRECT 0.2 mg/dL (0.0-0.2); CALCIUM 8.6 mg/dL (8.5-10.1); CO2 29 mmol/L (21-32); GLUCOSE,RANDOM 100 mg/dL (74-106); SGPT/ALT 34 U/L (12-78)
[2017-01-08 09:19] LABS: ALK PHOS 91 U/L (45-117); BILIRUBIN,TOTAL 0.4 mg/dL (0.2-1.0); CREATININE 0.7 mg/dL (0.55-1.02); SGOT/AST 24 U/L (15-37); TOT PROT 5.5 g/dl (6.4-8.2)
[2017-01-08] MEDS: LISINOPRIL 10 MG TABLET (FP) PO SCH (09:50)
[2017-01-08] MEDS: TOPIRAMATE 25 MG TABLET (FP) PO SCH ×2 (10:00→21:29)
[2017-01-08] MEDS ORDERED: BISACODYL 10 MG SUPP.RECT RC ONE (11:00)
--- NOTE | 2017-01-08 12:50 | PN ---
Progress Note (short form) - Note Progress Note: PULMONARY AWAKE/ALERT DAY #2 POST-OP ANICTERIC CLEAR BILATERAL ANTERIOR LUNG VARGHESE S1S2 POST-OP ABD/MILDLY DISTENDED/HYPOACTIVE BS NO EDEMA LABS/MEDS/NOTES/ IMAGING /REVIEWED STABLE COPD NOT INCENTIVE SPIROMETRY O2 SUPPLEMENTATION PRN WILL CONTINUE SPIRIVA/ADVAIR/ALBUTEROL/DVT PROPHYLAXSIS GI FOLLOW UP F/U CXR R LIZZ SONG Problem List - Problems (1) Bipolar disorder Code(s): F31.9 - BIPOLAR DISORDER, UNSPECIFIED Qualifiers: Active/Remission status: remission status unspecified Qualified Code (s): F31.9 - Bipolar disorder, unspecified (2) Cholecystitis, acute Code(s): K81.0 - ACUTE CHOLECYSTITIS (3) Hypertension Code(s): I10 - ESSENTIAL (PRIMARY) HYPERTENSION Qualifiers: Hypertension type: essential hypertension Qualified Code(s): I10 - Essential (primary) hypertension (4) Obesity (BMI 30-39.9) Code(s): E66.9 - OBESITY, UNSPECIFIED (5) COPD (chronic obstructive pulmonary disease) Code(s): J44.9 - CHRONIC OBSTRUCTIVE PULMONARY DISEASE, UNSPECIFIED Qualifiers : COPD type: unspecified COPD Qualified Code(s): J44.9 - Chronic obstructive pulmonary disease, unspecified
--- NOTE | 2017-01-08 13:18 | PN ---
Teaching Attending Note Name of Resident: Shruthi Fitzgerald ATTENDING PHYSICIAN STATEMENT I saw and evaluated the patient. I reviewed the resident's note and discussed the case with the resident. I agree with the resident's findings and plan as documented. SUBJECTIVE: Patient feels bloated. She has not yet had BM and is not passing flatus. OBJECTIVE: Vital Signs Period Temp Pulse Resp BP Sys/Acosta Pulse Ox Last 24 Hr 98.4 F-101 F 78-90 16-20 103-142/71-82 93-96 HEART: S1S2, RRR LUNGS: Clear ABDOMEN: Obese, distended, soft, mild diffuse tenderness, hypoactive BS EXTREMITIES: No edema ASSESSMENT AND PLAN: This is a 56-year-old woman with a history of HTN, hyperlipidiemia, COPD, bipolar disorder, oseteoarthritis who presented to the ER with abdominal pain. 1. Acute cholecystitis - s/p laparoscopc cholecystectomy 01/06 - Temp 101 this AM, WBC improving but still elevated (14.4) - Continue Merrem 2. Possible post-op ileus - NPO - Dulcolax suppository ordered - Ambulation 3. COPD - Stable - Continue Symbicort, DuoNeb 4. HTN - Continue Lisinopril 5. Hyperlipidemia 6. Bipolar disorder - Continue Trazodone
--- NOTE | 2017-01-08 13:41 | PATH ---
Surgical Pathology Report Patient Name: IFEANYI CHAMPION [facility]. Rec. #: [id number] /Age/Gender: 1960 (Age: 56) / F Account: [id number] Location: [address] [place] [address]/[facility] Taken: 01/06/2017 Received: 01/07/2017 Reported: 01/08/2017 Physicians: Basil Luna M.D. Specimen(s) Received GALLBLADDER Clinical History Acute cholecystitis Final Diagnosis GALLBLADDER, CHOLECYSTECTOMY: ACUTE HEMORRHAGIC NECROTIZING CHOLECYSTITIS, CHOLELITHIASIS. Electronically Signed Nick Boone M.D. Gross Description Received in formalin, labeled "gallbladder" is a 11.0 x 4.4 x 3.4 cm gallbladder with a 0.2 cm in length portion of cystic duct attached. The outer surface is barahona-pink and varies from smooth to shaggy. The lumen contains bar[place]ona, tenacious bile as well as a single 4.0 cm in greatest dimension bar[place]ona, ovoid cholelith. The mucosa is bar[place]ona and focally eroded. The wall of the gallbladder averages 0.4 cm in thickness. General Labor sections are submitted in one cassette. /01/07/201701/07/2017
--- NOTE | 2017-01-08 14:45 | PN ---
Physical Exam: SUBJECTIVE: Patient seen and examined at bedside. No acute events overnight. Patient still having abdominal discomfort. Has been OOB, not passing gas yet. Advanced to food diet from clears, but said her appetite is low. No N/V/SOB. OBJECTIVE: Vital Signs Period Temp Pulse Resp BP Sys/Acosta Pulse Ox Last 24 Hr 98.4 F-101 F 78-90 16-20 103-142/71-82 93-96 GENERAL: The patient is awake, alert, and fully oriented, in no acute distress. HEAD: Normal with no signs of trauma. EYES: PERRL, extraocular movements intact, sclera anicteric, conjunctiva clear. NECK: Trachea midline, full range of motion, supple. LUNGS: Breath sounds equal, clear to auscultation bilaterally, no wheezes, no crackles, no accessory muscle use. HEART: Regular rate and rhythm, S1, S2 without murmur, rub or gallop. ABDOMEN: distended, hypoactive bowel sounds heard, tender to palpation, moderate guarding EXTREMITIES: 2+ posterior tibial pulses, warm, well-perfused, no edema. Laboratory Results - last 24 hr 01/08/17 01/08/17 08:20 08:20 WBC 14.4 H RBC 3.42 L Hgb 10.8 Hct 32.9 MCV 96.1 H MCHC 32.9 RDW 12.9 Plt Count 259 MPV 8.2 Neutrophils % 85.0 H Lymphocytes % 8.3 D Monocytes % 5.7 Eosinophils % 0.7 D Basophils % 0.3 Sodium 142 Potassium 3.5 Chloride 105 Carbon Dioxide 29 Anion Gap 8 BUN 7 Creatinine 0.7 Random Glucose 100 Calcium 8.6 Total Bilirubin 0.4 D Direct Bilirubin 0.2 AST 24 D ALT 34 Alkaline Phosphatase 91 Total Protein 5.5 L Albumin 2.7 L Active Medications Generic Name Dose Route Start Last Admin Trade Name Freq PRN Reason Stop Dose Admin Acetaminophen 325 mg 01/08/17 09:14 Tylenol - PO Q6H PRN FEVER OR PAIN Albuterol/Ipratropium 1 amp 01/06/17 18:00 01/08/17 13:50 Duoneb - NEB 1 amp Q4HPO VIANEY Administration Budesonide/Formoterol Fumarate 1 puff 01/06/17 22:00 01/07/17 21:03 Symbicort 160/4.5mcg - IH 1 puff BID VIANEY Administration Meropenem 1 gm/ Dextrose 100 mls @ 100 mls/hr 01/06/17 22:30 01/08/17 09:54 IVPB 100 mls/hr Q8H-IV VIANEY Administration Protocol Ibuprofen 600 mg 01/08/17 15:00 Motrin - PO Q6H PRN PAIN Lisinopril 10 mg 01/07/17 10:00 01/08/17 09:50 Prinivil PO 10 mg DAILY [facility] Administration Oxycodone HCl 5 mg 01/08/17 09:14 Roxicodone - PO Q6H PRN Topiramate 50 mg 01/06/17 22:00 01/07/17 21:02 Topamax - PO 50 mg HS VIANEY Administration Topiramate 25 mg 01/07/17 10:00 01/07/17 09:30 Topamax - PO 25 mg DAILY [facility] Administration Trazodone HCl 150 mg 01/06/17 22:00 01/07/17 21:02 Desyrel - PO 150 mg HS VI[facility] Administration ASSESSMENT/PLAN: This is a 56 year old F with PMH of gallstones who presented to the ED with RUQ abdominal pain. Ultrasound confirmed cholecystitis. Patient admitted for sepsis secondary to acute cholecystitis. 1. Sepsis secondary to acute cholecystitis -s/p laparoscopic cholecystectomy -Meropenem day 3 -Pt low appetite, switched from food diet to NPO and ice chips -Pain control: Roxicodone 10mg PO q4h PRN, Tyenol 650 mg PO daily PRN 2. Possible ileus -Abdominal CXR: bowel gas non obstructive -changed to NPO -distended abdomen, OOB but still no flatus or BM -Dulcolax ordered, will follow-up -If emesis, NG tube to decompress 3. COPD -Symbicort 160/4.5 mcg, Duoneb 1 neb Q4 PRN 4. HTN- controlled -Continue home meds -Lisinopril 10 mg PO daily 5. Bipolar -Trazodone Visit type - Emergency Visit Emergency Visit: No - New Patient This patient is new to me today: No - Critical Care Critical Care patient: No - Discharge Referral Referred to [facility] No
--- NOTE | 2017-01-08 15:11 | PN ---
Progress Note, Physician History of Present Illness: patient passed flatus today no complaints - Current Medication List Current Medications: Active Medications Acetaminophen (Tylenol -) 325 mg PO Q6H PRN PRN Reason: FEVER OR PAIN Albuterol/Ipratropium (Duoneb -) 1 amp NEB Q4HPO [facility] Last Admin: 01/08/17 13:50 Dose: 1 amp Budesonide/Formoterol Fumarate (Symbicort 160/4.5mcg -) 1 puff IH BID [facility] Last Admin: 01/07/17 21:03 Dose: 1 puff Meropenem 1 gm/ Dextrose 100 mls @ 100 mls/hr IVPB Q8H-IV VIANEY PRN Reason: Protocol Last Admin: 01/08/17 09:54 Dose: 100 mls/hr Ibuprofen (Motrin -) 600 mg PO Q6H PRN PRN Reason: PAIN Lisinopril (Prinivil) 10 mg PO DAILY [facility] Last Admin: 01/08/17 09:50 Dose: 10 mg Oxycodone HCl (Roxicodone -) 5 mg PO Q6H PRN Topiramate (Topamax -) 50 mg PO HS [facility] Last Admin: 01/07/17 21:02 Dose: 50 mg Topiramate (Topamax -) 25 mg PO DAILY [facility] Last Admin: 01/07/17 09:30 Dose: 25 mg Trazodone HCl (Desyrel -) 150 mg PO [facility] Last Admin: 01/07/17 21:02 Dose: 150 mg - Objective Vital Signs: Vital Signs Temperature 98.8 F 01/08/17 14:50 Pulse Rate 88 01/08/17 10:12 Respiratory Rate 20 01/08/17 09:00 Blood Pressure 142/82 01/08/17 09:00 O2 Sat by Pulse Oximetry (%) 93 L 01/08/17 10:12 Constitutional: Yes: No Distress, Calm Cardiovascular: Yes: Regular Rate and Rhythm Respiratory: Yes: Regular, CTA Bilaterally Gastrointestinal: Yes: Soft, Hypoactive Bowel Sounds Musculoskeletal: Yes: WNL Extremities: Yes: WNL Neurological: Yes: Alert, Oriented Psychiatric: Yes: Alert, Oriented Labs: CBC, BMP 01/08/17 08:20 01/08/17 08:20 INR, PTT INR 1.16 (0.82-1.09) H 01/06/17 06:33 Assessment/Plan Problem List - Problems (1) Bipolar disorder Code(s): F31.9 - BIPOLAR DISORDER, UNSPECIFIED Qualifiers: Active/Remission status: remission status unspecified Qualified Code (s): F31.9 - Bipolar disorder, unspecified (2) Cholecystitis, acute Code(s): K81.0 - ACUTE CHOLECYSTITIS (3) Hypertension Code(s): I10 - ESSENTIAL (PRIMARY) HYPERTENSION Qualifiers: Hypertension type: essential hypertension Qualified Code(s): I10 - Essential (primary) hypertension (4) Obesity (BMI 30-39.9) Code(s): E66.9 - OBESITY, UNSPECIFIED (5) COPD (chronic obstructive pulmonary disease) Code(s): J44.9 - CHRONIC OBSTRUCTIVE PULMONARY DISEASE, UNSPECIFIED Qualifiers : COPD type: unspecified COPD Qualified Code(s): J44.9 - Chronic obstructive pulmonary disease, unspecifiedd plan continue abx was going to stop abx today will wait for one more day as patients wbc is still on the higher side
[2017-01-08] MEDS: traZODone HCL 50 MG TABLET (FP) PO SCH (21:29)
[2017-01-08] MEDS: BUDESONIDE/FORMETEROL FUMARATE 160/4.5 mcg INHALER IH SCH (21:29)
[2017-01-09] MEDS: MEROPENEM 1 GM in DEXTROSE 5%-WATER - 100 ML IVPB SCH ×3 (01:40→17:07)
[2017-01-09] MEDS: ALBUTEROL SO4 2.5/IPRATROPIUM 0.5 INH SOL 3 ML VIAL.NEB. NEB SCH ×6 (02:00→22:00)
[2017-01-09 06:58] LABS: BASOPHIL 0.3 % (0-2.0); EOSINOPHIL 1.2 % (0-4.5); MCH 31.8 pg (25.7-33.7); MCHC 33.6 g/dl (32.0-36.0); MEAN CELL VOLUME 94.6 fl (80-96); MEAN PLT VOLUME 8.7 fl (7.5-11.1); NEUTROPHILS 82.4 % (42.8-82.8); PLATELET COUNT 295 K/MM3 (134-434); RDW 12.8 % (11.6-15.6); WHITE BLOOD COUNT 11.2 K/mm3 (4.0-10.0)
[2017-01-09] MEDS: ACETAMINOPHEN 325 MG TABLET (FP) PO PRN ×2 (08:04→16:48)
[2017-01-09] MEDS ORDERED: PT OWN MED DRAWER 7, Y5N ONE ×3 (09:37→21:15)
[2017-01-09] MEDS: TOPIRAMATE 25 MG TABLET (FP) PO SCH ×2 (09:45→21:55)
[2017-01-09] MEDS: oxyCODONE HCL 5 MG TABLET PO PRN ×3 (09:45→23:22)
[2017-01-09] MEDS: LISINOPRIL 10 MG TABLET (FP) PO SCH (09:45)
[2017-01-09] MEDS: BUDESONIDE/FORMETEROL FUMARATE 160/4.5 mcg INHALER IH SCH ×2 (09:46→21:57)
--- NOTE | 2017-01-09 09:54 | PN ---
Physical Exam: SUBJECTIVE: Patient seen and examined. She had nausea and was shaking earlier. She then had temp 101.3. She denies chills. She has not had BM but is passing flatus. OBJECTIVE: Vital Signs Period Temp Pulse Resp BP Sys/Acosta Pulse Ox Last 24 Hr 98.2 F-101.3 F 76-95 20-20 120-150/7-76 93-94 GENERAL: The patient is awake, alert, and fully oriented, in no acute distress. LUNGS: Breath sounds equal, clear to auscultation bilaterally, no wheezes, no crackles, no accessory muscle use. HEART: Regular rate and rhythm, S1, S2 without murmur, rub or gallop. ABDOMEN: Obese, soft, mild epigastric tenderness, mildly distended, normoactive bowel sounds, no guarding, no rebound, no hepatosplenomegaly, no masses. EXTREMITIES: 2+ pulses, warm, well-perfused, no edema. Laboratory Results - last 24 hr 01/09/17 05:45 WBC 11.2 H RBC 3.22 L Hgb 10.2 L Hct 30.4 L MCV 94.6 MCH 31.8 MCHC 33.6 RDW 12.8 Plt Count 295 MPV 8.7 Neutrophils % 82.4 Lymphocytes % 10.3 D Monocytes % 5.8 Eosinophils % 1.2 Basophils % 0.3 Active Medications Generic Name Dose Route Start Last Admin Trade Name Freq PRN Reason Stop Dose Admin Acetaminophen 650 mg 01/09/17 07:55 01/09/17 08:04 Tylenol - PO 650 mg Q4H PRN Administration FEVER OR PAIN Albuterol/Ipratropium 1 amp 01/06/17 18:00 01/09/17 05:45 Duoneb - NEB 1 amp Q4HPO VIANEY Administration Budesonide/Formoterol Fumarate 1 puff 01/06/17 22:00 01/09/17 09:46 Symbicort 160/4.5mcg - IH 1 puff BID VIANEY Administration Meropenem 1 gm/ Dextrose 100 mls @ 100 mls/hr 01/06/17 22:30 01/09/17 09:46 IVPB 100 mls/hr Q8H-IV VIANEY Administration Protocol Ibuprofen 600 mg 01/08/17 15:00 Motrin - PO Q6H PRN PAIN Lisinopril 10 mg 01/07/17 10:00 01/09/17 09:45 Prinivil PO 10 mg DAILY VIANEY Administration Oxycodone HCl 5 mg 01/08/17 09:14 01/09/17 09:45 Roxicodone - PO 5 mg Q6H PRN Administration Topiramate 50 mg 01/06/17 22:00 01/08/17 21:29 Topamax - PO 50 mg HS VIANEY Administration Topiramate 25 mg 01/07/17 10:00 01/09/17 09:45 Topamax - PO 25 mg DAILY VIANEY Administration Trazodone HCl 150 mg 01/06/17 22:00 01/08/17 21:29 Desyrel - PO 150 mg HS VIANEY Administration ASSESSMENT/PLAN: This is a 56-year-old woman with a history of HTN, hyperlipidiemia, COPD, bipolar disorder, oseteoarthritis who presented to the ER with abdominal pain. 1. Acute cholecystitis - s/p laparoscopc cholecystectomy 01/06 - WBC improving but continues to be febrile - check CXR, blood cultures, UA, urine culture, lactic acid - Continue Merrem (day 4) - ID follow-up 2. Possible post-op ileus - Improving - Tolerating clear liquids - Ambulation 3. COPD - Stable - Continue Symbicort, DuoNeb 4. HTN - Continue Lisinopril 5. Hyperlipidemia 6. Bipolar disorder - Continue Trazodone Visit type - Emergency Visit Emergency Visit: Yes ED Registration Date: 01/05/17 Care time: The patient presented to the Emergency Department on the above date and was hospitalized for further evaluation of their emergent condition. - New Patient This patient is new to me today: No - Critical Care Critical Care patient: No - Discharge Referral Referred to [facility] Med P.C.: No
--- NOTE | 2017-01-09 11:11 | PN ---
Progress Note (short form) - Note Progress Note: PULMONARY Denies shortness of breath. +cough with thick clear sputum. Pain controlled Last Vital Signs Temp Pulse Resp BP Pulse Ox 101.3 F H 95 H 20 150/73 94 L 01/09/17 07:54 01/09/17 07:54 01/09/17 07:54 01/09/17 07:54 01/08/17 21:00 Gen: mildly tachypneic at rest Heart: RRR Lung: scattered wheezes Abd: soft, nontender Ext: no edema CBC, BMP 01/09/17 05:45 01/08/17 08:20 Active Medications Acetaminophen (Tylenol -) 650 mg PO Q4H PRN PRN Reason: FEVER OR PAIN Last Admin: 01/09/17 08:04 Dose: 650 mg Albuterol/Ipratropium (Duoneb -) 1 amp NEB Q4HPO [facility] Last Admin: 01/09/17 05:45 Dose: 1 amp Budesonide/Formoterol Fumarate (Symbicort 160/4.5mcg -) 1 puff IH BID [facility] Last Admin: 01/09/17 09:46 Dose: 1 puff Meropenem 1 gm/ Dextrose 100 mls @ 100 mls/hr IVPB Q8H-IV VIANEY PRN Reason: Protocol Last Admin: 01/09/17 09:46 Dose: 100 mls/hr Ibuprofen (Motrin -) 600 mg PO Q6H PRN PRN Reason: PAIN Lisinopril (Prinivil) 10 mg PO DAILY [facility] Last Admin: 01/09/17 09:45 Dose: 10 mg Oxycodone HCl (Roxicodone -) 5 mg PO Q6H PRN Last Admin: 01/09/17 09:45 Dose: 5 mg Topiramate (Topamax -) 50 mg PO HS [facility] Last Admin: 01/08/17 21:29 Dose: 50 mg Topiramate (Topamax -) 25 mg PO DAILY [facility] Last Admin: 01/09/17 09:45 Dose: 25 mg Trazodone HCl (Desyrel -) 150 mg PO HS [facility] Last Admin: 01/08/17 21:29 Dose: 150 mg A/P Acute Cholecystitis s/p Lap-Syeda 7/5 COPD HTN Hyperlipidemia Bipolar Disorder - antibiotics per ID - inhaled bronchodilators - O2 as needed - encouraged incentive spirometry - OOB, ambulate - DVT prophylaxis
--- NOTE | 2017-01-09 12:28 | PN ---
Progress Note, Physician History of Present Illness: patient stable passing flatus spiked a fever cx send spiked to 101.3 wbc trending down - Current Medication List Current Medications: Active Medications Acetaminophen (Tylenol -) 650 mg PO Q4H PRN PRN Reason: FEVER OR PAIN Last Admin: 01/09/17 08:04 Dose: 650 mg Albuterol/Ipratropium (Duoneb -) 1 amp NEB Q4HPO [facility] Last Admin: 01/09/17 11:27 Dose: 1 amp Budesonide/Formoterol Fumarate (Symbicort 160/4.5mcg -) 1 puff IH BID [facility] Last Admin: 01/09/17 09:46 Dose: 1 puff Meropenem 1 gm/ Dextrose 100 mls @ 100 mls/hr IVPB Q8H-IV [facility] PRN Reason: Protocol Last Admin: 01/09/17 09:46 Dose: 100 mls/hr Ibuprofen (Motrin -) 600 mg PO Q6H PRN PRN Reason: PAIN Lisinopril (Prinivil) 10 mg PO DAILY [facility] Last Admin: 01/09/17 09:45 Dose: 10 mg Oxycodone HCl (Roxicodone -) 5 mg PO Q6H PRN Last Admin: 01/09/17 09:45 Dose: 5 mg Topiramate (Topamax -) 50 mg PO [facility] Last Admin: 01/08/17 21:29 Dose: 50 mg Topiramate (Topamax -) 25 mg PO DAILY [facility] Last Admin: 01/09/17 09:45 Dose: 25 mg Trazodone HCl (Desyrel -) 150 mg PO [facility] Last Admin: 01/08/17 21:29 Dose: 150 mg - Objective Vital Signs: Vital Signs Temperature 101.3 F H 01/09/17 07:54 Pulse Rate 95 H 01/09/17 07:54 Respiratory Rate 20 01/09/17 07:54 Blood Pressure 150/73 01/09/17 07:54 O2 Sat by Pulse Oximetry (%) 96 01/09/17 09:00 Constitutional: Yes: No Distress, Calm Cardiovascular: Yes: Regular Rate and Rhythm Respiratory: Yes: Regular, Poor Air Entry Gastrointestinal: Yes: Abdomen, Obese, Distention, Hypoactive Bowel Sounds Musculoskeletal: Yes: WNL Extremities: Yes: WNL Neurological: Yes: Alert, Oriented Psychiatric: Yes: Alert, Oriented Labs: CBC, BMP 01/09/17 05:45 01/08/17 08:20 INR, PTT INR 1.16 (0.82-1.09) H 01/06/17 06:33 Assessment/Plan Problem List - Problems (1) Bipolar disorder Code(s): F31.9 - BIPOLAR DISORDER, UNSPECIFIED Qualifiers: Active/Remission status: remission status unspecified Qualified Code (s): F31.9 - Bipolar disorder, unspecified (2) Cholecystitis, acute Code(s): K81.0 - ACUTE CHOLECYSTITIS (3) Hypertension Code(s): I10 - ESSENTIAL (PRIMARY) HYPERTENSION Qualifiers: Hypertension type: essential hypertension Qualified Code(s): I10 - Essential (primary) hypertension (4) Obesity (BMI 30-39.9) Code(s): E66.9 - OBESITY, UNSPECIFIED (5) COPD (chronic obstructive pulmonary disease) Code(s): J44.9 - CHRONIC OBSTRUCTIVE PULMONARY DISEASE, UNSPECIFIED Qualifiers : COPD type: unspecified COPD Qualified Code(s): J44.9 - Chronic obstructive pulmonary disease, unspecifiedd plan wbc trending down spiked fever will continue abx for now rest as per primary
--- NOTE | 2017-01-09 14:24 | PN ---
Progress Note (short form) - Note Progress Note: Pt seen and examined in bed. States she felt better yesterday than today, but has tolerated some po, liquids and soup. Had one small BM yesterday and has been passing some flatus. Temp 101.3 this morning. No nausea or vomiting. No shoulder pain. Still with some soreness - the Caldolor worked best before. Took a Percocet this morning. Using IS - can get [phone]. Vital Signs (72 hours) 01/06/17 01/06/17 01/06/17 15:59 16:15 16:30 Temperature 99.1 F Pulse Rate 80 86 84 Respiratory 16 16 16 Rate Blood Pressure 147/91 118/69 117/67 O2 Sat by Pulse 96 96 96 Oximetry (%) 01/06/17 01/06/17 01/06/17 16:45 17:00 17:15 Temperature Pulse Rate 86 84 86 Respiratory 16 16 16 Rate Blood Pressure 133/80 130/77 122/72 O2 Sat by Pulse 95 95 95 Oximetry (%) 01/06/17 01/06/17 01/06/17 17:30 17:45 18:00 Temperature 99.2 F Pulse Rate 84 86 94 H Respiratory 16 16 18 Rate Blood Pressure 106/71 118/70 150/90 O2 Sat by Pulse 95 95 95 Oximetry (%) 01/06/17 01/06/17 01/07/17 21:00 22:41 02:00 Temperature 101 F H 99.6 F Pulse Rate 110 H 86 Respiratory 20 20 20 Rate Blood Pressure 133/70 100/55 O2 Sat by Pulse 96 Oximetry (%) 01/07/17 01/07/17 01/07/17 06:38 08:15 09:00 Temperature 99.8 F H 99.7 F H Pulse Rate 102 H 94 H Respiratory 18 18 Rate Blood Pressure 134/66 104/60 O2 Sat by Pulse 97 Oximetry (%) 01/07/17 01/07/17 01/07/17 09:30 15:22 21:00 Temperature 98.4 F Pulse Rate 86 90 Respiratory 16 16 Rate Blood Pressure 120/70 119/82 O2 Sat by Pulse 96 Oximetry (%) 01/07/17 01/08/17 01/08/17 22:12 07:08 09:00 Temperature 99 F 98.8 F 101 F H Pulse Rate 84 83 78 Respiratory 18 20 20 Rate Blood Pressure 118/72 103/71 142/82 O2 Sat by Pulse Oximetry (%) 01/08/17 01/08/17 01/08/17 10:12 14:50 18:00 Temperature 98.8 F 98.6 F Pulse Rate 88 82 Respiratory 20 Rate Blood Pressure 122/68 O2 Sat by Pulse 93 L Oximetry (%) 01/08/17 01/08/17 01/09/17 21:00 22:00 06:00 Temperature 98.2 F 98.4 F Pulse Rate 77 76 Respiratory 20 20 20 Rate Blood Pressure 120/76 134/7 O2 Sat by Pulse 94 L Oximetry (%) 01/09/17 01/09/17 07:54 09:00 Temperature 101.3 F H Pulse Rate 95 H Respiratory 20 Rate Blood Pressure 150/73 O2 Sat by Pulse 96 Oximetry (%) PE: abdomen soft, obese, somewhat distended, minimal tympany tender RUQ without R/G, less elsewhere steristrips dry and intact used IS sitting at edge of bed with fair effort A/P: POD#3 s/p laparoscopic cholecystectomy + bowel function but still somewhat distended, tender, diet still mainly liquids fever this am, yest am still on antibiotics will get CT scan abd/pelv with PO/IV contrast to ensure no collection discussed with Dr. Barcenas of primary team Problem List - Problems (1) Calculus of gallbladder with acute cholecystitis without obstruction Code(s): K80.00 - CALCULUS OF GALLBLADDER W ACUTE CHOLECYST W/O OBSTRUCTION (2) COPD (chronic obstructive pulmonary disease) Code(s): J44.9 - CHRONIC OBSTRUCTIVE PULMONARY DISEASE, UNSPECIFIED Qualifiers : COPD type: unspecified COPD Qualified Code(s): J44.9 - Chronic obstructive pulmonary disease, unspecified (3) Obesity (BMI 30-39.9) Code(s): E66.9 - OBESITY, UNSPECIFIED (4) Hypertension Code(s): I10 - ESSENTIAL (PRIMARY) HYPERTENSION Qualifiers: Hypertension type: essential hypertension Qualified Code(s): I10 - Essential (primary) hypertension (5) Bipolar disorder Code(s): F31.9 - BIPOLAR DISORDER, UNSPECIFIED Qualifiers: Active/Remission status: remission status unspecified Qualified Code (s): F31.9 - Bipolar disorder, unspecified
[2017-01-09 18:12] LABS: URINE APPEARANCE CLEAR; URINE BILIRUBIN NEGATIVE (NEGATIVE); URINE BLOOD NEGATIVE (NEGATIVE); URINE COLOR LTYELLOW; URINE GLUCOSE (UA) NEGATIVE (NEGATIVE); URINE KETONE NEGATIVE (NEGATIVE); URINE LEUK ESTERASE NEGATIVE (NEGATIVE); URINE NITRITE NEGATIVE (NEGATIVE); URINE PROTEIN NEGATIVE (NEGATIVE); URINE UROBILINOGEN NEGATIVE E.U./dl (0.2-1.0)
[2017-01-09] MEDS: IBUPROFEN 400 MG TABLET (FP) PO PRN (21:55)
[2017-01-09] MEDS: traZODone HCL 50 MG TABLET (FP) PO SCH (21:55)
[2017-01-10] MEDS: ALBUTEROL SO4 2.5/IPRATROPIUM 0.5 INH SOL 3 ML VIAL.NEB. NEB SCH ×6 (02:00→22:41)
[2017-01-10] MEDS: MEROPENEM 1 GM in DEXTROSE 5%-WATER - 100 ML IVPB SCH ×3 (02:20→17:14)
[2017-01-10] MEDS ORDERED: PT OWN MED DRAWER 7, Y5N ONE ×3 (09:47→21:33)
[2017-01-10] MEDS: BUDESONIDE/FORMETEROL FUMARATE 160/4.5 mcg INHALER IH SCH ×2 (09:50→21:37)
[2017-01-10] MEDS: TOPIRAMATE 25 MG TABLET (FP) PO SCH ×2 (09:51→21:37)
[2017-01-10] MEDS: oxyCODONE HCL 5 MG TABLET PO PRN ×2 (09:51→16:21)
[2017-01-10] MEDS: LISINOPRIL 10 MG TABLET (FP) PO SCH (09:52)
--- NOTE | 2017-01-10 10:10 | PN ---
Physical Exam: SUBJECTIVE: Patient seen and examined OBJECTIVE: Vital Signs Period Temp Pulse Resp BP Sys/Acosta Pulse Ox Last 24 Hr 98.3 F-100.8 F 67-83 18-21 134-145/66-86 97 GENERAL: The patient is awake, alert, and fully oriented, in no acute distress. LUNGS: Breath sounds equal, clear to auscultation bilaterally, no wheezes, no crackles, no accessory muscle use. HEART: Regular rate and rhythm, S1, S2 without murmur, rub or gallop. ABDOMEN: Obese, soft, non-tender, mildly distended, normoactive bowel sounds, no guarding, no rebound, no hepatosplenomegaly, no masses. EXTREMITIES: 2+ pulses, warm, well-perfused, no edema. Laboratory Results - last 24 hr 01/09/17 01/09/17 01/09/17 10:50 13:15 15:20 Lactic Acid 0.7 1.1 Urine Color Ltyellow Urine Appearance Clear Urine pH 8.0 D Ur Specific [place] 1.015 Urine Protein Negative Urine Glucose (UA) Negative Urine Ketones Negative Urine Blood Negative Urine Nitrite Negative Urine Bilirubin Negative Urine Urobilinogen Negative Ur Leukocyte Esterase Negative Active Medications Generic Name Dose Route Start Last Admin Trade Name Freq PRN Reason Stop Dose Admin Acetaminophen 650 mg 01/09/17 07:55 01/09/17 16:48 Tylenol - PO 650 mg Q4H PRN Administration FEVER OR PAIN Albuterol/Ipratropium 1 amp 01/06/17 18:00 01/10/17 05:56 Duoneb - NEB 1 amp Q4HPO VIANEY Administration Budesonide/Formoterol Fumarate 1 puff 01/06/17 22:00 01/10/17 09:50 Symbicort 160/4.5mcg - IH 1 puff BID VIANEY Administration Meropenem 1 gm/ Dextrose 100 mls @ 100 mls/hr 01/06/17 22:30 01/10/17 09:50 IVPB 100 mls/hr Q8H-IV VIANEY Administration Protocol Ibuprofen 600 mg 01/08/17 15:00 01/09/17 21:55 Motrin - PO 600 mg Q6H PRN Administration PAIN Lisinopril 10 mg 01/07/17 10:00 01/10/17 09:52 Prinivil PO 10 mg DAILY VIANEY Administration Oxycodone HCl 5 mg 01/08/17 09:14 01/10/17 09:51 Roxicodone - PO 5 mg Q6H PRN Administration Topiramate 50 mg 01/06/17 22:00 01/09/17 21:55 Topamax - PO 50 mg HS VIANEY Administration Topiramate 25 mg 01/07/17 10:00 01/10/17 09:51 Topamax - PO 25 mg DAILY VIANEY Administration Trazodone HCl 150 mg 01/06/17 22:00 01/09/17 21:55 Desyrel - PO 150 mg HS VIANEY Administration ASSESSMENT/PLAN: This is a 56-year-old woman with a history of HTN, hyperlipidiemia, COPD, bipolar disorder, oseteoarthritis who presented to the ER with abdominal pain. 1. Acute cholecystitis - s/p laparoscopc cholecystectomy 01/06 - Had temp 101.3 yesterday morning and 100.8 yesterday afternoon - CXR, UA negative - Blood and urine cultures pending - CT abdomen/pelvis shows bibasilar atelectasis, small pleural effusions, s/p cholecystectomy with no abscess, free pelvic fluid with mild inflammatory changes about rectosigmoid colon - Continue Merrem (day 5) 2. Post-op ileus - Improved - Advance diet - Ambulation 3. COPD - Stable - Continue Symbicort, DuoNeb 4. HTN - Continue Lisinopril 5. Hyperlipidemia 6. Bipolar disorder - Continue Trazodone Visit type - Emergency Visit Emergency Visit: Yes ED Registration Date: 01/05/17 Care time: The patient presented to the Emergency Department on the above date and was hospitalized for further evaluation of their emergent condition. - New Patient This patient is new to me today: No - Critical Care Critical Care patient: No - Discharge Referral Referred to [facility] Med P.C.: No
--- NOTE | 2017-01-10 10:47 | PN ---
Progress Note (short form) - Note Progress Note: PULMONARY Denies shortness of breath. +cough with clear sputum. Pain controlled. Fever curve down. Last Vital Signs Temp Pulse Resp BP Pulse Ox 99.0 F 67 18 137/82 97 01/10/17 08:04 01/10/17 08:04 01/10/17 08:04 01/10/17 08:04 01/10/17 08:57 Gen: mildly tachypneic at rest Heart: RRR Lung: scattered wheezes Abd: soft, nontender Ext: no edema CBC, BMP 01/09/17 05:45 01/08/17 08:20 Active Medications Acetaminophen (Tylenol -) 650 mg PO Q4H PRN PRN Reason: FEVER OR PAIN Last Admin: 01/09/17 16:48 Dose: 650 mg Albuterol/Ipratropium (Duoneb -) 1 amp NEB Q4HPO [facility] Last Admin: 01/10/17 10:43 Dose: 1 amp Budesonide/Formoterol Fumarate (Symbicort 160/4.5mcg -) 1 puff IH BID [facility] Last Admin: 01/10/17 09:50 Dose: 1 puff Meropenem 1 gm/ Dextrose 100 mls @ 100 mls/hr IVPB Q8H-IV VIANEY PRN Reason: Protocol Last Admin: 01/10/17 09:50 Dose: 100 mls/hr Ibuprofen (Motrin -) 600 mg PO Q6H PRN PRN Reason: PAIN Last Admin: 01/09/17 21:55 Dose: 600 mg Lisinopril (Prinivil) 10 mg PO DAILY [facility] Last Admin: 01/10/17 09:52 Dose: 10 mg Oxycodone HCl (Roxicodone -) 5 mg PO Q6H PRN Last Admin: 01/10/17 09:51 Dose: 5 mg Topiramate (Topamax -) 50 mg PO HS [facility] Last Admin: 01/09/17 21:55 Dose: 50 mg Topiramate (Topamax -) 25 mg PO DAILY [facility] Last Admin: 01/10/17 09:51 Dose: 25 mg Trazodone HCl (Desyrel -) 150 mg PO HS [facility] Last Admin: 01/09/17 21:55 Dose: 150 mg A/P Acute Cholecystitis s/p Lap-Syeda 01/06 Atelectasis COPD HTN Hyperlipidemia Bipolar Disorder - antibiotics per ID - inhaled bronchodilators - O2 as needed - encouraged incentive spirometry - OOB, ambulate - DVT prophylaxis
--- NOTE | 2017-01-10 13:33 | PN ---
Progress Note, Physician Chief Complaint: epigastric/RUQ pain History of Present Illness: Pt seen and examined in bed. She had temp 101 yesterday am and 100.8 yest pm. Pain is responding to meds, but she still has some in RUQ at times. Has had multiple BMs after oral contrast yesterday and feels much better. Diet resumed today for lunch, and she has tolerated food. No n/v. No SOB. Using IS and coughing with some productivity. Has been OOB and ambulated. Antibiotics continue. CT yesterday showed no collection or abscess in RUQ, small amount of free fluid in pelvis, likely residual from OR in dependent position. No free air. Some atelectasis in lungs with small pleural effusions. - Current Medication List Current Medications: Active Medications Acetaminophen (Tylenol -) 650 mg PO Q4H PRN PRN Reason: FEVER OR PAIN Last Admin: 01/09/17 16:48 Dose: 650 mg Albuterol/Ipratropium (Duoneb -) 1 amp NEB Q4HPO [facility] Last Admin: 01/10/17 10:43 Dose: 1 amp Budesonide/Formoterol Fumarate (Symbicort 160/4.5mcg -) 1 puff IH BID [facility] Last Admin: 01/10/17 09:50 Dose: 1 puff Meropenem 1 gm/ Dextrose 100 mls @ 100 mls/hr IVPB Q8H-IV VIANEY PRN Reason: Protocol Last Admin: 01/10/17 09:50 Dose: 100 mls/hr Ibuprofen (Motrin -) 600 mg PO Q6H PRN PRN Reason: PAIN Last Admin: 01/09/17 21:55 Dose: 600 mg Lisinopril (Prinivil) 10 mg PO DAILY [facility] Last Admin: 01/10/17 09:52 Dose: 10 mg Oxycodone HCl (Roxicodone -) 5 mg PO Q6H PRN Last Admin: 01/10/17 09:51 Dose: 5 mg Topiramate (Topamax -) 50 mg PO HS [facility] Last Admin: 01/09/17 21:55 Dose: 50 mg Topiramate (Topamax -) 25 mg PO DAILY [facility] Last Admin: 01/10/17 09:51 Dose: 25 mg Trazodone HCl (Desyrel -) 150 mg PO [facility] Last Admin: 01/09/17 21:55 Dose: 150 mg - Objective Vital Signs: Vital Signs Temperature 99.0 F 01/10/17 08:04 Pulse Rate 67 01/10/17 08:04 Respiratory Rate 18 01/10/17 08:04 Blood Pressure 137/82 01/10/17 08:04 O2 Sat by Pulse Oximetry (%) 97 01/10/17 09:00 Constitutional: Yes: No Distress, Calm, Obese Cardiovascular: Yes: Regular Rate and Rhythm. No: Murmur Respiratory: Yes: Regular, CTA Bilaterally Gastrointestinal: Yes: Normal Bowel Sounds (to slightly decreased), Soft, Abdomen, Obese, Distention (mild vs obesity), Tenderness (mild incisional only) Wound/Incision: Yes: Clean/Dry, Steri Strips (with some old bloodstaining but dry) Neurological: Yes: Alert, Oriented Labs: CBC, BMP 01/09/17 05:45 01/08/17 08:20 INR, PTT INR 1.16 (0.82-1.09) H 01/06/17 06:33 - ....Imaging Cat Scan: Report Reviewed, Image Reviewed Problem List - Problems (1) Calculus of gallbladder with acute cholecystitis without obstruction Assessment/Plan: POD4 s/p laparoscopic cholecystectomy for acute cholecystitis tolerating po with resumption of bowel function (postop ileus resolved) encouraged to be OOB and ambulating pulmonary toilet - IS and coughing wounds clean and dry GI/DVT prophylaxis temp curve decreasing continue antibiotics per ID postop instructions written in discharge plan Code(s): K80.00 - CALCULUS OF GALLBLADDER W ACUTE CHOLECYST W/O OBSTRUCTION (2) Ileus, postoperative Assessment/Plan: had delayed return of bowel function now resolved oral contrast facilitated passage of stool with subjective relief by patient Code(s): K91.89 - OTH POSTPROCEDURAL COMPLICATIONS AND DISORDERS OF DGSTV SYS K56.7 - ILEUS, UNSPECIFIED (3) COPD (chronic obstructive pulmonary disease) Assessment/Plan: atelectasis with small effusions continue nebs, home meds IS, pulmonary toilet, OOB/ambulation pt sees Dr. Suazo 4mm right mid-lung lateral irregular nodularity noted on CXR - per pt, known to specifications writer and following, along with another one Code(s): J44.9 - CHRONIC OBSTRUCTIVE PULMONARY DISEASE, UNSPECIFIED Qualifiers : COPD type: unspecified COPD Qualified Code(s): J44.9 - Chronic obstructive pulmonary disease, unspecified (4) Obesity (BMI 30-39.9) Code(s): E66.9 - OBESITY, UNSPECIFIED (5) Hypertension Assessment/Plan: continue home med per primary team Code(s): I10 - ESSENTIAL (PRIMARY) HYPERTENSION Qualifiers: Hypertension type: essential hypertension Qualified Code(s): I10 - Essential (primary) hypertension (6) Bipolar disorder Assessment/Plan: continuing home meds Code(s): F31.9 - BIPOLAR DISORDER, UNSPECIFIED Qualifiers: Active/Remission status: remission status unspecified Qualified Code (s): F31.9 - Bipolar disorder, unspecified
--- NOTE | 2017-01-10 13:40 | PN ---
Progress Note, Physician History of Present Illness: events noted from yesterday patient had fever and chills currently stable workup done - Current Medication List Current Medications: Active Medications Acetaminophen (Tylenol -) 650 mg PO Q4H PRN PRN Reason: FEVER OR PAIN Last Admin: 01/09/17 16:48 Dose: 650 mg Albuterol/Ipratropium (Duoneb -) 1 amp NEB Q4HPO [facility] Last Admin: 01/10/17 10:43 Dose: 1 amp Budesonide/Formoterol Fumarate (Symbicort 160/4.5mcg -) 1 puff IH BID [facility] Last Admin: 01/10/17 09:50 Dose: 1 puff Meropenem 1 gm/ Dextrose 100 mls @ 100 mls/hr IVPB Q8H-IV [facility] PRN Reason: Protocol Last Admin: 01/10/17 09:50 Dose: 100 mls/hr Ibuprofen (Motrin -) 600 mg PO Q6H PRN PRN Reason: PAIN Last Admin: 01/09/17 21:55 Dose: 600 mg Lisinopril (Prinivil) 10 mg PO DAILY [facility] Last Admin: 01/10/17 09:52 Dose: 10 mg Oxycodone HCl (Roxicodone -) 5 mg PO Q6H PRN Last Admin: 01/10/17 09:51 Dose: 5 mg Topiramate (Topamax -) 50 mg PO [facility] Last Admin: 01/09/17 21:55 Dose: 50 mg Topiramate (Topamax -) 25 mg PO DAILY [facility] Last Admin: 01/10/17 09:51 Dose: 25 mg Trazodone HCl (Desyrel -) 150 mg PO [facility] Last Admin: 01/09/17 21:55 Dose: 150 mg - Objective Vital Signs: Vital Signs Temperature 99.0 F 01/10/17 08:04 Pulse Rate 67 01/10/17 08:04 Respiratory Rate 18 01/10/17 08:04 Blood Pressure 137/82 01/10/17 08:04 O2 Sat by Pulse Oximetry (%) 97 01/10/17 09:00 Constitutional: Yes: No Distress, Calm Cardiovascular: Yes: Regular Rate and Rhythm Respiratory: Yes: Regular, CTA Bilaterally Gastrointestinal: Yes: Normal Bowel Sounds, Soft Musculoskeletal: Yes: WNL Extremities: Yes: WNL Neurological: Yes: Alert, Oriented Psychiatric: Yes: Alert, Oriented Labs: CBC, BMP 01/09/17 05:45 01/08/17 08:20 INR, PTT INR 1.16 (0.82-1.09) H 01/06/17 06:33 Assessment/Plan Problem List - Problems (1) Bipolar disorder Code(s): F31.9 - BIPOLAR DISORDER, UNSPECIFIED Qualifiers: Active/Remission status: remission status unspecified Qualified Code (s): F31.9 - Bipolar disorder, unspecified (2) Cholecystitis, acute Code(s): K81.0 - ACUTE CHOLECYSTITIS (3) Hypertension Code(s): I10 - ESSENTIAL (PRIMARY) HYPERTENSION Qualifiers: Hypertension type: essential hypertension Qualified Code(s): I10 - Essential (primary) hypertension (4) Obesity (BMI 30-39.9) Code(s): E66.9 - OBESITY, UNSPECIFIED (5) COPD (chronic obstructive pulmonary disease) Code(s): J44.9 - CHRONIC OBSTRUCTIVE PULMONARY DISEASE, UNSPECIFIED Qualifiers : COPD type: unspecified COPD Qualified Code(s): J44.9 - Chronic obstructive pulmonary disease, unspecifiedd plan continue abx labs tomorrow patient feeling better continue monitoring
[2017-01-10] MEDS: IBUPROFEN 400 MG TABLET (FP) PO PRN ×2 (15:14→21:38)
[2017-01-10] MEDS: traZODone HCL 50 MG TABLET (FP) PO SCH (21:37)
[2017-01-11] MEDS: ALBUTEROL SO4 2.5/IPRATROPIUM 0.5 INH SOL 3 ML VIAL.NEB. NEB SCH ×3 (02:05→10:22)
[2017-01-11] MEDS: MEROPENEM 1 GM in DEXTROSE 5%-WATER - 100 ML IVPB SCH ×2 (02:13→09:17)
[2017-01-11 02:36] VITALS: TEMP 98.6
[2017-01-11] MEDS ORDERED: PT OWN MED DRAWER 7, Y5N ONE ×2 (02:55→08:23)
[2017-01-11] MEDS: oxyCODONE HCL 5 MG TABLET PO PRN ×2 (03:12→10:14)
[2017-01-11 06:22] LABS: BASOPHIL 0.8 % (0-2.0); EOSINOPHIL 2.9 % (0-4.5); MCH 31.5 pg (25.7-33.7); MEAN CELL VOLUME 95.5 fl (80-96); MEAN PLT VOLUME 8.4 fl (7.5-11.1); NEUTROPHILS 73.3 % (42.8-82.8); PLATELET COUNT 363 K/MM3 (134-434); RDW 13.1 % (11.6-15.6); WHITE BLOOD COUNT 8.7 K/mm3 (4.0-10.0)
[2017-01-11 06:29] VITALS: BP 132/72; PULSE 70
[2017-01-11 06:56] LABS: ANION GAP 6 (8-16); CALCIUM 8.4 mg/dL (8.5-10.1); CO2 27 mmol/L (21-32); CREATININE 0.6 mg/dL (0.55-1.02); GLUCOSE,RANDOM 88 mg/dL (74-106)
[2017-01-11] MEDS: TOPIRAMATE 25 MG TABLET (FP) PO SCH (09:17)
[2017-01-11] MEDS: LISINOPRIL 10 MG TABLET (FP) PO SCH (09:18)
[2017-01-11] MEDS: BUDESONIDE/FORMETEROL FUMARATE 160/4.5 mcg INHALER IH SCH (10:17)
--- NOTE | 2017-01-11 11:42 | DS ---
Physical Exam: SUBJECTIVE: Patient seen and examined at bedside. Patient states that she is feeling much better, has less abdominal pain, and passed flatus last night. She also had a BM last night and has been able to tolerate food in small quantities. Patient was hungry this morning. No acute events overnight. Denies shortness of breath, chest pain, or any new physical symptoms. OBJECTIVE: Vital Signs Period Temp Pulse Resp BP Sys/Acosta Pulse Ox Last 24 Hr 98.4 F-99.5 F 70-89 16-20 130-133/72-85 94 PHYSICAL EXAM GENERAL: The patient is awake, alert, and fully oriented, in no acute distress. HEAD: Normal with no signs of trauma. EYES: PERRL, extraocular movements intact, sclera anicteric, conjunctiva clear. NECK: Trachea midline, supple. LUNGS: Breath sounds equal, clear to auscultation bilaterally, no wheezes, no crackles, no accessory muscle use. HEART: Regular rate and rhythm, S1, S2 without murmur, rub or gallop. ABDOMEN: nontender, improved distension, bowel sounds heard in all four quadrants, no guarding, no rebound, surgical incisions healing EXTREMITIES: 2+ posterior tibial pulses, no edema. VITALS-TREND 01/05/17 01/05/17 01/05/17 15:25 18:11 20:12 Temperature 98.5 F 99.3 F 101 F H Pulse Rate O2 Sat by Pulse Oximetry (%) 01/05/17 01/06/17 01/06/17 22:30 02:00 05:58 Temperature 100 F H 98.5 F 98.2 F Pulse Rate 71 O2 Sat by Pulse Oximetry (%) 01/06/17 01/06/17 01/06/17 15:59 16:15 16:30 Temperature 99.1 F Pulse Rate 80 86 84 O2 Sat by Pulse Oximetry (%) 01/06/17 01/06/17 01/06/17 16:45 17:00 17:15 Temperature Pulse Rate 86 84 86 O2 Sat by Pulse Oximetry (%) 01/06/17 01/06/17 01/06/17 17:30 17:45 18:00 Temperature 99.2 F Pulse Rate 84 86 94 H O2 Sat by Pulse Oximetry (%) 01/06/17 01/08/17 01/08/17 22:41 10:12 21:00 Temperature 101 F H Pulse Rate 110 H O2 Sat by Pulse 93 L 94 L Oximetry (%) 01/11/17 01/11/17 01/11/17 02:00 06:00 10:21 Temperature 98.6 F 98.6 F Pulse Rate O2 Sat by Pulse 94 L Oximetry (%) LABS 01/05/17 01/06/17 01/07/17 16:10 06:33 05:50 WBC 16.1 H D 12.3 H 19.4 H D Hgb Hct Sodium Potassium Chloride Anion Gap BUN 01/08/17 01/09/17 01/11/17 08:20 05:45 05:40 WBC 14.4 H 11.2 H 8.7 Hgb 10.2 L 10.1 L Hct 30.4 L 30.5 L Sodium Potassium Chloride Anion Gap BUN 01/11/17 05:40 WBC Hgb Hct Sodium 145 Potassium 4.1 Chloride 112 H Anion Gap 6 L BUN 5 L D Microbiology 01/09/17 15:20 Urine - Urine Clean Catch Urine Culture - Final NO GROWTH OBTAINED 01/09/17 10:55 Blood - Peripheral Venous Blood Culture - Preliminary NO GROWTH OBTAINED AFTER 48 HOURS, INCUBATION TO CONTINUE FOR 3 DAYS. 01/09/17 10:50 Blood - Peripheral Venous Blood Culture - Preliminary NO GROWTH OBTAINED AFTER 48 HOURS, INCUBATION TO CONTINUE FOR 3 DAYS. IMAGING 01/09/17: CT ABDOMEN/PELVIS WITH CONTRAST: IMPRESSION: 1. Bibasilar atelectasis and small pleural effusions. 2. S/P cholecystectomy with no evidence of biloma or abscess. 3. Free pelvic fluid with mild inflammatory changes about the rectosigmoid colon. 01/09/17: CXR: Impression: Large heart. Prominent tarik. No acute chest pathology. 01/07/17: CXR Abdomen: non-obstructive bowel gas pattern 01/07/17: KUB: Portable x-ray of the abdomen, 2 supine views. Compared to prior x- ray of the abdomen dated 02/21/2006 Examination is suboptimal. The bowel gas pattern is nonobstructive. No gross organomegaly or free air is seen. Postcholecystectomy surgical metallic clips are noted. There are marked degenerative changes involving the right hip joint with deformity of the acetabulum. There are also at least mild degenerative changes involving the left hip joint. 01/05/17: CR Chest PA and Lat: There is a 4 mm slightly irregular nodular density over the right mid lung field laterally and recommend correlation with elective CT. Otherwise, the lung lewis appear clear, without evidence of infiltrate or effusion. Cardiomediastinal silhouette is within normal limits. There are degenerative changes of spine. 01/05/17: GALLBLADDER US: thick walled gallbladder with stones and sludge, hepatomegaly with diffuse fatty infiltration SURGERY 01/06/17 Operation: laparoscopic cholecystectomy Findings: very large, inflamed gallbladder with very large stone inside HOSPITAL COURSE: Date of Admission:01/05/17 Date of Discharge: 01/11/17 Admit diagnosis: sepsis secondary to acute cholecystitis Pre-hospital course 56 year old female with PMH of HTN, HLD, COPD, bipolar disorder ,arthritis in the back and right knee, known cholelithisis with h/o of biliary colic, who presented to the ED due to severe RUQ for three days. The pain was 8/10, constant, and exacerbated by food intake. It radiated to the back and mid- sternum, and each episode lasted for 8 hours. Pain was associated with nausea, vomiting after eating, and fever and chills during the night. Patient had similar pain for eight months prior to presentation, but each episode lasted twenty minutes. She has also noticed pale stool and dark urine during this time. Denies any jaundice, chest pain, or palpitations. While in the ED, patient received dilaudid for pain control. Admission course Patient was admitted to service due to sepsis secondary to acute cholecystitis, as she was febrile (temp 100F) and had a white count of 16.1. She was NPO, placed on IVF,roxicodone 10mg PO q4 PRN for pain control, and completed a 6 day course of meropenem during her stay. On 01/06/17, she underwent a laparoscopic cholecystectomy performed by Dr. Luna. After surgery, patient had possible post-operative ileus, as her temperature was 101F and her abdomen remained distended and tender. Urine and blood cultures revealed no growth, and a subsequent abdominal X-ray revealed a non- obstructive bowel gas pattern. However, after a suppository, her condition improved. She was able to ambulate, passed flatus, had a bowel movement, and was able to tolerate her diet. Her white count additionally resolved to 8.7. Minutes to complete discharge: 32 Discharge Summary Reason For Visit: CHOLECYSTITIS,CHRONIC OBSTRUCTIVE PUL DISEASE Current Active Problems Calculus of gallbladder with acute cholecystitis without obstruction (Acute) Cholecystitis, acute (Acute) Ileus, postoperative (Acute) Obesity (BMI 30-39.9) (Acute) Bipolar disorder (Chronic) Hypertension (Chronic) Condition: Stable - Instructions Diet, Activity, Other Instructions: Postoperative instructions: You had a laparoscopic cholecystectomy on 01/06/[address] Basil Luna of [facility]. Resume your usual activities gradually, but no heavy exertion or lifting more than 10-15 pounds for 1 month. Sticky tapes will fall off by themselves. You may shower daily, just pat the incision areas dry. Eat lightly at first, but advance to your usual diet as tolerated. For pain, it's ok to use Regular or extra-strength Tylenol, or your own Percocet 10/325mg every 6 hours as needed. You may ALTERNATE this with Ibuprofen 400-600mg every 6 hrs as needed. That means you can take one or the other every 3 hours or more if needed. Do not take more than 3000mg of acetaminophen in a day. Call Dr. Luna's office at [phone] for your postop appointment (Wednesday in 2 weeks after surgery). Call Dr. Luna if you have: - increasing pain not responsive to pain medication - fever of 101F or higher - vomiting - unusual or increasing bleeding or drainage from wounds - increasing redness or swelling at wound sites - inability to urinate There is a pulmonary nodule found on your chest x-ray, please follow-up with your refund specialist in 1 week. If you have chest pain, shortness of breath, or any new symptoms, please return to the hospital. Referrals: Basil Luna MD [Staff Physician] - Samuel Suazo MD [Staff Physician] - Coco Tello MD [Primary Care Provider] - Disposition: HOME - Home Medications Comprehensive Discharge Medication List: Ambulatory Orders Albuterol 0.083% Nebulizer Sandra [Ventolin 0.083% Nebulizer Soln -] 1 neb NEB Q4H #1 box 07/25/15 Budesonide/Formeterol Fumarate [SYMBICORT 160/4.5mcg -] 1 inh PO BID 08/22/16 Fluticasone/Salmeterol [Advair Hfa 115-21 Mcg Inhaler] 1 inh PO BID 08/22/16 Lisinopril [Prinivil] 10 mg PO DAILY 08/22/16 Ibuprofen [Motrin -] 600 mg PO QID #120 tablet 09/07/16 Oxycodone HCl/Acetaminophen [Percocet 10-325 mg Tablet] 1 each PO Q6H PRN Topiramate [Topamax] 1 tab PO AM 01/05/17 Topiramate [Topamax] 2 tab PO HS 01/05/17 Trazodone HCl [Desyrel -] 1 tab PO HS 01/05/17 This patient is new to me today: No Emergency Visit: No Critical Care patient: No - Discharge Referral Referred to [facility] No
[2017-01-11] MEDS: IBUPROFEN 400 MG TABLET (FP) PO PRN (13:04)
--- NOTE | 2017-01-11 16:34 | PN ---
Teaching Attending Note Name of Resident: Shruthi Fitzgerald ATTENDING PHYSICIAN STATEMENT I saw and evaluated the patient. I reviewed the resident's note and discussed the case with the resident. I agree with the resident's findings and plan as documented. SUBJECTIVE: Patient has no complaints. She is having small stools. Tolerating diet. OBJECTIVE: Vital Signs Period Temp Pulse Resp BP Sys/Acosta Pulse Ox Last 24 Hr 98.6 F-99.5 F 70-89 16-20 130-133/72-82 94 GENERAL: The patient is awake, alert, and fully oriented, in no acute distress. LUNGS: Breath sounds equal, clear to auscultation bilaterally, no wheezes, no crackles, no accessory muscle use. HEART: Regular rate and rhythm, S1, S2 without murmur, rub or gallop. ABDOMEN: Obese, soft, non-tender, mildly distended, normoactive bowel sounds, no guarding, no rebound, no hepatosplenomegaly, no masses. EXTREMITIES: 2+ pulses, warm, well-perfused, no edema. ASSESSMENT AND PLAN: This is a 56-year-old woman with a history of HTN, hyperlipidiemia, COPD, bipolar disorder, oseteoarthritis who presented to the ER with abdominal pain. 1. Acute cholecystitis - s/p laparoscopc cholecystectomy 01/06 - Afebrile - CXR, UA negative - Blood and urine cultures negative so far - CT abdomen/pelvis shows bibasilar atelectasis, small pleural effusions, s/ p cholecystectomy with no abscess, free pelvic fluid with mild inflammatory changes about rectosigmoid colon 2. Post-op ileus - Improved 3. COPD - Stable - Continue Symbicort, DuoNeb 4. HTN - Continue Lisinopril 5. Hyperlipidemia 6. Bipolar disorder - Continue Trazodone 7. Disposition - Ok for discharge home without antibiotics
== END 2017-01-11 13:27 | disposition home or self-care (01) | DRG 263 ==
LOC: JER 15:22 → JERBED 18:39 → J6S 19:59
PROVIDERS: ADMIT Internal Medicine; ATTEND Internal Medicine
PROC: 0FT44ZZ Resection of Gallbladder, Percutaneous Endoscopic Approach (ICD-10-PCS; principal; 2017-01-06 12:00)
DX: K80.00 Calculus of gallbladder with acute cholecystitis without obstruction (principal); J44.9 Chronic obstructive pulmonary disease, unspecified; K56.7 Ileus, unspecified; K91.3 Postprocedural intestinal obstruction; I10 Essential (primary) hypertension; E78.5 Hyperlipidemia, unspecified; F17.210 Nicotine dependence, cigarettes, uncomplicated; F31.9 Bipolar disorder, unspecified; E66.9 Obesity, unspecified; Z68.38 Body mass index [BMI] 38.0-38.9, adult; Z88.0 Allergy status to penicillin; J45.909 Unspecified asthma, uncomplicated; F41.9 Anxiety disorder, unspecified; M19.90 Unspecified osteoarthritis, unspecified site; Y83.8 Other surgical procedures as the cause of abnormal reaction of the patient, or of later complication, without mention of misadventure at the time of the procedure; A41.9 Sepsis, unspecified organism
CPT/HCPCS: 36415; 71010-TC; 71020-TC; 74000-TC; 74177-TC; 76705-TC; 80048; 80053; 80076; 81003; 81015; 82550; 83605; 83690; 84484; 85025; 85027; 85610; 85730; 86850; 86900; 86901; 87040; 87086; 88304-TC; 93005; 93010; 94010; 94640; 94760; 97116-GP; 97161-GP; 99284-25

== ENCOUNTER → 2023-01-17 | Emergency (ER) | payer OTHER ==
[2023-01-17 20:52] VITALS: BP 176/108; PULSE 101; RESP 19; TEMP 99.4; BMI 43.9
== END | disposition left against medical advice (07) ==
LOC: JER 20:35
DX: K08.89 Other specified disorders of teeth and supporting structures (principal)
CPT/HCPCS: 99282-25